=== PATIENT | female | born 1930 | race Caucasian/White ===

== ENCOUNTER 2017-10-02 14:18 | Inpatient (IN) | payer MEDICARE, OTHER ==
--- NOTE | 2017-10-02 15:27 | C.PDOC ---
History Of Present Illness 87 year old female, whose PMHx includes HTN, presents to the ED for evaluation after sustaining a fall two days ago. Patient states that she fell after getting out of bed and was unable to get up, so she laid on the floor overnight. She is complaining of bilateral hip and knee pain. Additional history is limited because patient is mildly confused at baseline and is a poor historian. Time Seen by Provider: 10/02/17 14:23 Chief Complaint (Nursing): Lower Extremity Problem/Injury History Per: Patient History/Exam Limitations: other (poor historian, confused at baseline ) Onset/Duration Of Symptoms: Days (2) Current Symptoms Are (Timing): Still Present Additional History Per: Patient - Hip Description Of Injury: Fell - Knee Description Of Injury: Fell Past Medical History Reviewed: Historical Data, Nursing Documentation, Vital Signs Vital Signs: Last Vital Signs Temp 97.4 F L 10/02/17 18:49 Pulse 72 10/02/17 18:49 Resp 18 10/02/17 18:49 BP 172/74 H 10/02/17 18:49 Pulse Ox 96 10/02/17 18:49 - Medical History PMH: Arthritis, 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), Gastritis, HTN, Hyperthyroidism, Hypothyroidism, Osteoporosis Surgical History: No Surg Hx Family History: States: Unknown Family Hx - Social History Hx Tobacco Use: No Hx Alcohol Use: No Hx Substance Use: No - Immunization History Hx Tetanus Toxoid Vaccination: No Hx Influenza Vaccination: No Hx Pneumococcal Vaccination: No Review Of Systems Musculoskeletal: Positive for: Other (bilateral hip and knee pain ) Physical Exam - Physical Exam Appears: Non-toxic, No Acute Distress Skin: Normal Color, Warm, Dry Head: Atraumatic, Normacephalic Eye(s): bilateral: Normal Inspection Oral Mucosa: Moist Neck: Supple Chest: Symmetrical, No Deformity, No Tenderness Cardiovascular: Rhythm Regular, No Murmur Respiratory: Normal Breath Sounds, No Rales, No Rhonchi, No Wheezing Extremity: Tenderness (to bilateral knees and hips ), Capillary Refill (less than 2 seconds ) Neurological/Psych: Other (awake, alert ) ED Course And Treatment - Laboratory Results Result Diagrams: 10/02/17 15:25 10/02/17 15:25 ECG: Interpreted By Me, Viewed By Me ECG Rhythm: Sinus Rhythm Interpretation Of ECG: Normal Sinus Rhythm at rate 70bpm. No ST/T wave changes. Rate From EC O2 Sat by Pulse Oximetry: 99 (on RA) Pulse Ox Interpretation: Normal Medical Decision Making Medical Decision Making: Progress: Bloodwork, urinalysis, CT Head, CXR, EKG, Knee XR, Hip XR ordered and reviewed. Tylenol PO administered. pt lives by herself. needs pt eval for gait dysfunction. xr neg for acute fracture. accepted by dr aceves. Disposition - Disposition Disposition: HOSPITALIZED Disposition Time: 19:28 Condition: STABLE - Clinical Impression Clinical Impression: Fall, Inability to ambulate due to hip - Scribe Statement The provider has reviewed the documentation as recorded by the Scribe (Arabella Do) Provider Attestation: All medical record entries made by the Scribe were at my direction and personally dictated by me. I have reviewed the chart and agree that the record accurately reflects my personal performance of the history, physical exam, medical decision making, and the department course for this patient. I have also personally directed, reviewed, and agree with the discharge instructions and disposition. Decision To Admit - Pt Status Changed To: Hospital Disposition Of: Inpatient - Admit Certification Admit to Inpatient:: After my assessment, the patient will require hospitalization for at least two midnights. This is because of the severity of symptoms shown, intensity of services needed, and/or the medical risk in this patient being treated as an outpatient. - InPatient: Physician Admission Certification: I certify that this patient requires 2 or more midnights of care for the following reason:: needs pt eval. - . Bed Request Type: Regular Admitting Physician: Padmini Aceves Patient Diagnosis: Fall, Inability to ambulate due to hip
[2017-10-02 15:31] LABS: BASO % 0.4 % (0.0-2.0); EOS # 0.1 K/uL (0.0-0.7); EOS % 1.1 % (0.0-4.0); HEMOGLOBIN 13.2 g/dL (11.0-16.0); LYMPH # 0.9 K/uL (1.0-4.3); LYMPH % 12.5 % (20.0-40.0); MEAN CORPUSCULAR HEMOGLOBIN 29.7 pg (27.0-31.0); MEAN PLATELET VOLUME 8.3 fL (7.2-11.7); MONO # 0.7 K/uL (0.0-0.8); MONO % 10.2 % (0.0-10.0); NEUT # 5.3 K/uL (1.8-7.0); NEUT % 75.8 % (50.0-75.0); NRBC % 0.1 % (0.0-2.0); RBC 4.46 Mil/uL (3.80-5.20)
[2017-10-02 15:33] LABS: MEAN CELL VOLUME 84.8 fL (81.0-99.0)
[2017-10-02 15:39] LABS: INR 1.4; PROTHROMBIN TIME 15.1 SECONDS (9.7-12.2)
[2017-10-02 15:47] LABS: ALB/GLOB RATIO 1.1 (1.0-2.1); ALBUMIN 3.9 g/dL (3.5-5.0); ALT/SGPT 30 U/L (9-52); AST/SGOT 32 U/L (14-36); BLOOD UREA NITROGEN 10 mg/dL (7-17); CALCIUM 9.3 mg/dl (8.6-10.4); GFR AFRICAN-AMERICAN > 60; GFR NON-AFRICAN AMERICAN > 60
[2017-10-02 16:11] LABS: SQUAMOUS EPITHIAL 3 /hpf (0-5); URINE BACTERIA RARE (<OCC); URINE BILIRUBIN NEGATIVE (NEGATIVE); URINE BLOOD 2+ (NEGATIVE); URINE CLARITY Clear (Clear); URINE COLOR Yellow (YELLOW); URINE GLUCOSE (UA) NORMAL (Normal); URINE LEUKOCYTE ESTERASE NEG Leu/uL (Negative); URINE PROTEIN NEGATIVE (NEGATIVE)
--- NOTE | 2017-10-02 16:34 | CT ---
PROCEDURE: CT HEAD WITHOUT CONTRAST. HISTORY: trauma COMPARISON: 07/21/2016 TECHNIQUE: Axial computed tomography images were obtained through the head/brain without intravenous contrast. Radiation dose: Total exam DLP = 833.06 mGy-cm. This CT exam was performed using one or more of the following dose reduction techniques: Automated exposure control, adjustment of the mA and/or kV according to patient size, and/or use of iterative reconstruction technique. FINDINGS: HEMORRHAGE: No intracranial hemorrhage. BRAIN: No mass effect or edema. No atrophy or chronic microvascular ischemic changes. VENTRICLES: Unremarkable. No hydrocephalus. CALVARIUM: Unremarkable. PARANASAL SINUSES: Chronic sphenoid sinusitis unchanged. MASTOID AIR CELLS: Unremarkable as visualized. No inflammatory changes. OTHER FINDINGS: None. IMPRESSION: No intracranial hemorrhage. Chronic sphenoid sinusitis. Otherwise unremarkable. .
--- NOTE | 2017-10-02 17:08 | RAD ---
PROCEDURE: Bilateral Knee Radiographs. HISTORY: fall COMPARISON: None. FINDINGS: BONES: Right Knee: Normal. No fracture. Left Knee: Normal. No fracture. JOINTS: Right Knee: Degenerative changes primarily affecting medial compartment. Left knee: Degenerative changes affecting both medial lateral compartments. SOFT TISSUES: Right Knee: Normal. Left Knee: Normal. JOINT EFFUSION: Right Knee: None. Left Knee: None. OTHER FINDINGS: None. IMPRESSION: No acute findings related to/accounting for the clinical presentation.
--- NOTE | 2017-10-02 17:10 | RAD ---
PROCEDURE: Pelvis bilateral hips HISTORY: fall COMPARISON: None TECHNIQUE: Standard protocol for this study/examination. FINDINGS: There are no osseous abnormalities to suggest fracture. The pelvic ring is intact. Severe degenerative changes/osteonecrosis right femur. The right femoral head is collapse. Subchondral sclerosis and cyst formation on both sides of the joint. IMPRESSION: No acute findings related to/accounting for the clinical presentation. Severe unilateral degenerative change including osteonecrosis right femoral head. This includes deformity, subchondral cyst formation and sclerosis. Secondary remodeling of the acetabulum noted.
--- NOTE | 2017-10-02 17:10 | RAD ---
HISTORY: fall COMPARISON: 02/23/2014 FINDINGS: LUNGS: No active pulmonary disease. PLEURA: No significant pleural effusion identified, no pneumothorax apparent. CARDIOVASCULAR: No radiographic findings to suggest acute or significant cardiovascular disease. OSSEOUS STRUCTURES: No significant abnormalities. VISUALIZED UPPER ABDOMEN: Normal. OTHER FINDINGS: None. IMPRESSION: No active disease. No significant interval change compared to the prior examination(s).
[2017-10-03] MEDS: Levothyroxine 75 MCG TAB PO SCH (06:03)
[2017-10-03] MEDS: Enoxaparin 40 mg Syringe SC SCH (09:35)
[2017-10-03] MEDS: Brimonidine 0.2% Opth Sol (5ml) OU SCH ×2 (10:00→18:23)
[2017-10-03] MEDS: Pantoprazole 40 mg EC Tab PO SCH (10:00)
[2017-10-03] MEDS ORDERED: FLUOROMETHOLONE 0.1% OU PRN (16:06)
[2017-10-03] MEDS ORDERED: OPTH OU PRN (16:06)
--- NOTE | 2017-10-03 19:20 | CARD ---
APPROVED REPORT EKG Measurement Heart [id number] <Conclusion> Normal sinus rhythm Low voltage QRS Septal infarct, age undetermined Abnormal ECG
--- NOTE | 2017-10-03 19:34 | CP.PCM.PN ---
Subjective - Date & Time of Evaluation Date of Evaluation: 10/03/17 Time of Evaluation: 19:33 - Subjective Subjective: Pt feels better no pain no sob no fever agrees to NH Placement Objective - Vital Signs/Intake and Output Vital Signs (last 24 hours): Temp Pulse Resp BP Pulse Ox 97.5 F L 67 20 132/67 97 10/03/17 15:00 10/03/17 15:00 10/03/17 15:00 10/03/17 15:00 10/03/17 15:00 - Medications Medications: Current Medications Acetaminophen (Tylenol 325mg Tab) 650 mg PO Q8 PRN PRN Reason: Pain, moderate (4-7) Last Admin: 10/03/17 09:30 Dose: 650 mg Amlodipine Besylate (Norvasc) 5 mg PO DAILY [facility] Last Admin: 10/03/17 11:51 Dose: 5 mg Brimonidine Tartrate (Alphagan 0.2% Opht) 0 ml OU Q8H [facility] Last Admin: 10/03/17 18:23 Dose: 1 drop Enoxaparin Sodium (Lovenox) 40 mg SC DAILY [facility] Last Admin: 10/03/17 09:35 Dose: 40 mg Fluorometholone Acetate (Flarex) 0 ml OU TID PRN PRN Reason: Allergy symptoms Home Med (Azelastine Hcl [Azelastine Hcl]) 1 drop OU DAILY [facility] Latanoprost (Xalatan Opht) 0 ml OU HS [facility] Levothyroxine Sodium (Synthroid) 75 mcg PO DAILY@0630 [facility] Last Admin: 10/03/17 06:03 Dose: 75 mcg Losartan Potassium (Cozaar) 100 mg PO DAILY [facility] Last Admin: 10/03/17 11:51 Dose: 100 mg Meclizine HCl (Antivert) 25 mg PO Q8 PRN PRN Reason: Dizziness Pantoprazole Sodium (Protonix Ec Tab) 40 mg PO DAILY [facility] Last Admin: 10/03/17 10:00 Dose: 40 mg Pneumococcal Polyvalent Vaccine (Pneumovax 23 Vaccine) 0.5 ml IM .ONCE ONE Stop: 10/06/17 10:01 Timolol Maleate (Timoptic 0.5% Ophth Soln) 0 drop OU BID [facility] Last Admin: 10/03/17 18:23 Dose: 1 drop - Labs Labs: 10/02/17 15:25 10/02/17 15:25 PT 15.1 SECONDS (9.7-12.2) H 10/02/17 15:25 INR 1.4 10/02/17 15:25 APTT 33 SECONDS (21-34) 10/02/17 15:25 - Constitutional Appears: Non-toxic - Eye Exam Eye Exam: Normal appearance - ENT Exam ENT Exam: Mucous Membranes Moist - Respiratory Exam Respiratory Exam: Clear to Ausculation Bilateral - Cardiovascular Exam Cardiovascular Exam: REGULAR RHYTHM, +S1, +S2. absent: JVD - Extremities Exam Extremities Exam: absent: Pedal Edema Assessment and Plan - Assessment and Plan (Free Text) Assessment: 87 yo admitted after multiple fall lives alone but has had over 3 falls in last few weeks this time could not get up\\ PT and NH placement eval bp is better cont meds
[2017-10-03] MEDS: Latanoprost 2.5 ml Opht Soln OU SCH (22:20)
[2017-10-04] MEDS: Brimonidine 0.2% Opth Sol (5ml) OU SCH ×3 (02:38→18:04)
[2017-10-04] MEDS: Levothyroxine 75 MCG TAB PO SCH (05:49)
[2017-10-04] MEDS: Pantoprazole 40 mg EC Tab PO SCH (09:35)
[2017-10-04] MEDS: Enoxaparin 40 mg Syringe SC SCH (09:36)
[2017-10-04] MEDS: Latanoprost 2.5 ml Opht Soln OU SCH (21:24)
[2017-10-05] MEDS: Brimonidine 0.2% Opth Sol (5ml) OU SCH ×3 (02:20→19:00)
[2017-10-05] MEDS: Levothyroxine 75 MCG TAB PO SCH (05:56)
[2017-10-05] MEDS: Enoxaparin 40 mg Syringe SC SCH (09:32)
[2017-10-05] MEDS: Pantoprazole 40 mg EC Tab PO SCH (09:33)
[2017-10-05] MEDS: Latanoprost 2.5 ml Opht Soln OU SCH (22:37)
[2017-10-06] MEDS: Brimonidine 0.2% Opth Sol (5ml) OU SCH ×3 (02:20→18:16)
[2017-10-06] MEDS: Levothyroxine 75 MCG TAB PO SCH (05:39)
[2017-10-06] MEDS: Pantoprazole 40 mg EC Tab PO SCH (09:41)
[2017-10-06] MEDS: Enoxaparin 40 mg Syringe SC SCH (09:41)
[2017-10-06] MEDS ORDERED: Pneumococcal 23-Valent Vaccine IM ONE (10:00)
--- NOTE | 2017-10-06 17:06 | CP.PCM.PN ---
Subjective - Date & Time of Evaluation Date of Evaluation: 10/06/17 Time of Evaluation: 07:00 - Subjective Subjective: PT has been doing well no issues Objective - Vital Signs/Intake and Output Vital Signs (last 24 hours): Temp Pulse Resp BP Pulse Ox 98.2 F 62 20 146/68 99 10/06/17 08:05 10/06/17 09:42 10/06/17 08:05 10/06/17 09:42 10/06/17 08:05 Intake and Output: 10/06/17 10/06/17 06:59 18:59 Intake Total 60 Output Total 300 Balance -240 - Medications Medications: Current Medications Acetaminophen (Tylenol 325mg Tab) 650 mg PO Q8 PRN PRN Reason: Pain, moderate (4-7) Last Admin: 10/06/17 04:00 Dose: 650 mg Amlodipine Besylate (Norvasc) 5 mg PO DAILY [facility] Last Admin: 10/06/17 09:41 Dose: 5 mg Brimonidine Tartrate (Alphagan 0.2% Opht) 0 ml OU Q8H [facility] Last Admin: 10/06/17 11:19 Dose: 1 drop Enoxaparin Sodium (Lovenox) 40 mg SC DAILY [facility] Last Admin: 10/06/17 09:41 Dose: 40 mg Fluorometholone Acetate (Flarex) 0 ml OU TID PRN PRN Reason: Allergy symptoms Home Med (Azelastine Hcl [Azelastine Hcl]) 1 drop OU DAILY [facility] Latanoprost (Xalatan Opht) 0 ml OU HS [facility] Last Admin: 10/05/17 22:37 Dose: 2.5 ml Levothyroxine Sodium (Synthroid) 75 mcg PO DAILY@0630 [facility] Last Admin: 10/06/17 05:39 Dose: 75 mcg Losartan Potassium (Cozaar) 50 mg PO DAILY [facility] Meclizine HCl (Antivert) 25 mg PO Q8 PRN PRN Reason: Dizziness Pantoprazole Sodium (Protonix Ec Tab) 40 mg PO DAILY [facility] Last Admin: 10/06/17 09:41 Dose: 40 mg Timolol Maleate (Timoptic 0.5% Ophth Soln) 0 drop OU BID [facility] Last Admin: 10/06/17 11:18 Dose: 1 drop - Labs Labs: 10/02/17 15:25 10/02/17 15:25 PT 15.1 SECONDS (9.7-12.2) H 10/02/17 15:25 INR 1.4 10/02/17 15:25 APTT 33 SECONDS (21-34) 10/02/17 15:25 - Constitutional Appears: Well - Eye Exam Eye Exam: Normal appearance - ENT Exam ENT Exam: Mucous Membranes Moist - Respiratory Exam Respiratory Exam: Clear to Ausculation Bilateral Assessment and Plan - Assessment and Plan (Free Text) Assessment: bp ; on the low side decreased losartan spoke to RN awaiting eval for Nh placement
[2017-10-06] MEDS: Latanoprost 2.5 ml Opht Soln OU SCH (21:43)
[2017-10-07] MEDS: Brimonidine 0.2% Opth Sol (5ml) OU SCH ×3 (01:18→17:41)
[2017-10-07] MEDS: Levothyroxine 75 MCG TAB PO SCH (06:09)
[2017-10-07] MEDS: Enoxaparin 40 mg Syringe SC SCH (09:55)
[2017-10-07] MEDS: Pantoprazole 40 mg EC Tab PO SCH (09:56)
--- NOTE | 2017-10-07 16:50 | CP.PCM.PN ---
Subjective - Date & Time of Evaluation Date of Evaluation: 10/07/17 Time of Evaluation: 16:50 - Subjective Subjective: Pt feels well [facility] alert and aware of every detail no pain Objective - Vital Signs/Intake and Output Vital Signs (last 24 hours): Temp Pulse Resp BP Pulse Ox 97.8 F 60 20 112/56 L 99 10/07/17 15:00 10/07/17 15:00 10/07/17 15:00 10/07/17 15:00 10/07/17 15:00 Intake and Output: 10/07/17 10/07/17 06:59 18:59 Intake Total 200 Balance 200 - Medications Medications: Current Medications Acetaminophen (Tylenol 325mg Tab) 650 mg PO Q8 PRN PRN Reason: Pain, moderate (4-7) Last Admin: 10/06/17 04:00 Dose: 650 mg Brimonidine Tartrate (Alphagan 0.2% Opht) 0 ml OU Q8H [facility] Last Admin: 10/07/17 09:55 Dose: 1 drop Enoxaparin Sodium (Lovenox) 40 mg SC DAILY [facility] Last Admin: 10/07/17 09:55 Dose: 40 mg Fluorometholone Acetate (Flarex) 0 ml OU TID PRN PRN Reason: Allergy symptoms Home Med (Azelastine Hcl [Azelastine Hcl]) 1 drop OU DAILY [facility] Latanoprost (Xalatan Opht) 0 ml OU HS [facility] Last Admin: 10/06/17 21:43 Dose: 2.5 ml Levothyroxine Sodium (Synthroid) 75 mcg PO DAILY@0630 [facility] Last Admin: 10/07/17 06:09 Dose: 75 mcg Losartan Potassium (Cozaar) 50 mg PO DAILY [facility] Last Admin: 10/07/17 09:55 Dose: 50 mg Meclizine HCl (Antivert) 25 mg PO Q8 PRN PRN Reason: Dizziness Pantoprazole Sodium (Protonix Ec Tab) 40 mg PO DAILY [facility] Last Admin: 10/07/17 09:56 Dose: 40 mg Timolol Maleate (Timoptic 0.5% Ophth Soln) 0 drop OU BID [facility] Last Admin: 10/07/17 09:56 Dose: 1 drop - Labs Labs: 10/02/17 15:25 10/02/17 15:25 PT 15.1 SECONDS (9.7-12.2) H 10/02/17 15:25 INR 1.4 10/02/17 15:25 APTT 33 SECONDS (21-34) 10/02/17 15:25 - Constitutional Appears: Well - Eye Exam Eye Exam: Normal appearance - ENT Exam ENT Exam: Mucous Membranes Moist - Respiratory Exam Respiratory Exam: Clear to Ausculation Bilateral - Cardiovascular Exam Cardiovascular Exam: REGULAR RHYTHM, RRR. absent: JVD - GI/Abdominal Exam GI & Abdominal Exam: Soft, Normal Bowel Sounds - Extremities Exam Extremities Exam: absent: Pedal Edema Assessment and Plan - Assessment and Plan (Free Text) Assessment: bp on low side dc norvasc and monitor awaiting for NH placement
[2017-10-07] MEDS: Latanoprost 2.5 ml Opht Soln OU SCH (21:35)
[2017-10-08] MEDS: Brimonidine 0.2% Opth Sol (5ml) OU SCH ×3 (04:13→17:32)
[2017-10-08] MEDS: Levothyroxine 75 MCG TAB PO SCH (05:53)
[2017-10-08] MEDS: Pantoprazole 40 mg EC Tab PO SCH (09:19)
[2017-10-08] MEDS: Enoxaparin 40 mg Syringe SC SCH (09:19)
--- NOTE | 2017-10-08 16:24 | CP.PCM.PN ---
Subjective - Date & Time of Evaluation Date of Evaluation: 10/08/17 Time of Evaluation: 06:00 - Subjective Subjective: Pt awating for NH placement. manager document control anticipates it will take bout a week. Pt cant go home due to inabililty to care for self and multiple falls. Objective - Vital Signs/Intake and Output Vital Signs (last 24 hours): Temp Pulse Resp BP Pulse Ox 97.5 F L 52 L 20 92/55 L 98 10/08/17 07:15 10/08/17 07:15 10/08/17 07:15 10/08/17 07:15 10/08/17 07:15 Intake and Output: 10/08/17 10/08/17 06:59 18:59 Intake Total 320 Output Total 1050 Balance -730 - Medications Medications: Current Medications Acetaminophen (Tylenol 325mg Tab) 650 mg PO Q8 PRN PRN Reason: Pain, moderate (4-7) Last Admin: 10/08/17 04:16 Dose: 650 mg Brimonidine Tartrate (Alphagan 0.2% Opht) 0 ml OU Q8H [facility] Last Admin: 10/08/17 09:19 Dose: 1 drop Enoxaparin Sodium (Lovenox) 40 mg SC DAILY [facility] Last Admin: 10/08/17 09:19 Dose: 40 mg Fluorometholone Acetate (Flarex) 0 ml OU TID PRN PRN Reason: Allergy symptoms Home Med (Azelastine Hcl [Azelastine Hcl]) 1 drop OU DAILY [facility] Latanoprost (Xalatan Opht) 0 ml OU HS [facility] Last Admin: 10/07/17 21:35 Dose: 1 ml Levothyroxine Sodium (Synthroid) 75 mcg PO DAILY@0630 [facility] Last Admin: 10/08/17 05:53 Dose: 75 mcg Meclizine HCl (Antivert) 25 mg PO Q8 PRN PRN Reason: Dizziness Pantoprazole Sodium (Protonix Ec Tab) 40 mg PO DAILY [facility] Last Admin: 10/08/17 09:19 Dose: 40 mg Timolol Maleate (Timoptic 0.5% Ophth Soln) 0 drop OU BID [facility] Last Admin: 10/08/17 09:20 Dose: 1 drop - Labs Labs: 10/02/17 15:25 10/02/17 15:25 PT 15.1 SECONDS (9.7-12.2) H 10/02/17 15:25 INR 1.4 10/02/17 15:25 APTT 33 SECONDS (21-34) 10/02/17 15:25 - Constitutional Appears: No Acute Distress - Eye Exam Eye Exam: Normal appearance - ENT Exam ENT Exam: Mucous Membranes Moist - Respiratory Exam Respiratory Exam: Clear to Ausculation Bilateral - GI/Abdominal Exam GI & Abdominal Exam: Soft. absent: Tenderness Assessment and Plan - Assessment and Plan (Free Text) Assessment: awaing for NH placement hypotension; dc bp meds ua spoke to RN; no issues reported
[2017-10-08] MEDS: Latanoprost 2.5 ml Opht Soln OU SCH (21:40)
[2017-10-08 22:57] LABS: SQUAMOUS EPITHIAL 5 /hpf (0-5); URINE BACTERIA MOD (<OCC); URINE BILIRUBIN NEGATIVE (NEGATIVE); URINE BLOOD 2+ (NEGATIVE); URINE CLARITY Hazy (Clear); URINE COLOR Yellow (YELLOW); URINE GLUCOSE (UA) NORMAL (Normal); URINE LEUKOCYTE ESTERASE 3+ Leu/uL (Negative); URINE PROTEIN NEGATIVE (NEGATIVE); URINE UROBILINOGEN NORMAL mg/dL (0.2-1.0)
[2017-10-09] MEDS: Brimonidine 0.2% Opth Sol (5ml) OU SCH ×3 (02:44→17:23)
[2017-10-09] MEDS: Levothyroxine 75 MCG TAB PO SCH (05:49)
[2017-10-09 06:39] LABS: BASO # 0.1 K/uL (0.0-0.2); BASO % 1.1 % (0.0-2.0); EOS # 0.3 K/uL (0.0-0.7); EOS % 5.5 % (0.0-4.0); HEMOGLOBIN 11.3 g/dL (11.0-16.0); LYMPH # 1.3 K/uL (1.0-4.3); LYMPH % 27.9 % (20.0-40.0); MEAN CELL VOLUME 84.7 fL (81.0-99.0); MEAN CORPUSCULAR HGB CONC 34.2 g/dL (33.0-37.0); MEAN PLATELET VOLUME 8.2 fL (7.2-11.7); MONO # 0.5 K/uL (0.0-0.8); MONO % 11.5 % (0.0-10.0); NEUT # 2.6 K/uL (1.8-7.0); RBC 3.91 Mil/uL (3.80-5.20); RED CELL DISTRIBUTION WIDTH 13.9 % (11.5-14.5); WHITE BLOOD COUNT 4.8 K/uL (4.8-10.8)
[2017-10-09 07:14] LABS: BLOOD UREA NITROGEN 23 mg/dL (7-17); CALCIUM 8.4 mg/dl (8.6-10.4); GFR AFRICAN-AMERICAN > 60; GFR NON-AFRICAN AMERICAN 59
[2017-10-09] MEDS: Enoxaparin 40 mg Syringe SC SCH (09:54)
[2017-10-09] MEDS: Pantoprazole 40 mg EC Tab PO SCH (09:54)
--- NOTE | 2017-10-09 16:50 | CP.PCM.PN ---
Subjective - Date & Time of Evaluation Date of Evaluation: 10/09/17 Time of Evaluation: 06:00 - Subjective Subjective: NO issues with patient today however nurse called due to constipation still wating for NH placement Objective - Vital Signs/Intake and Output Vital Signs (last 24 hours): Temp Pulse Resp BP Pulse Ox 97.4 F L 61 18 112/72 98 10/09/17 15:46 10/09/17 15:46 10/09/17 15:46 10/09/17 15:46 10/09/17 15:46 Intake and Output: 10/09/17 10/09/17 06:59 18:59 Intake Total 480 Output Total 1000 450 Balance -520 -450 - Medications Medications: Current Medications Acetaminophen (Tylenol 325mg Tab) 650 mg PO Q8 PRN PRN Reason: Pain, moderate (4-7) Last Admin: 10/09/17 02:45 Dose: 650 mg Brimonidine Tartrate (Alphagan 0.2% Opht) 0 ml OU Q8H [facility] Last Admin: 10/09/17 09:57 Dose: 1 drop Enoxaparin Sodium (Lovenox) 40 mg SC DAILY [facility] Last Admin: 10/09/17 09:54 Dose: 40 mg Fluorometholone Acetate (Flarex) 0 ml OU TID PRN PRN Reason: Allergy symptoms Home Med (Patient's Own Drops) 1 drop OU Q24H [facility] Ciprofloxacin (Cipro 400mg/200ml Dsw) 400 mg in 200 mls @ 133 mls/hr IVPB Q12H [facility] PRN Reason: Protocol Lactulose (Enulose) 20 gm PO ONCE PRN PRN Reason: Constipation Latanoprost (Xalatan Opht) 0 ml OU HS [facility] Last Admin: 10/08/17 21:40 Dose: 1 ml Levothyroxine Sodium (Synthroid) 75 mcg PO DAILY@0630 [facility] Last Admin: 10/09/17 05:49 Dose: 75 mcg Meclizine HCl (Antivert) 25 mg PO Q8 PRN PRN Reason: Dizziness Pantoprazole Sodium (Protonix Ec Tab) 40 mg PO DAILY [facility] Last Admin: 10/09/17 09:54 Dose: 40 mg Timolol Maleate (Timoptic 0.5% Ophth Soln) 0 drop OU BID [facility] Last Admin: 10/09/17 09:56 Dose: 1 drop - Labs Labs: 05/17/18 06:30 10/09/17 06:30 PT 15.1 SECONDS (9.7-12.2) H 10/02/17 15:25 INR 1.4 10/02/17 15:25 APTT 33 SECONDS (21-34) 10/02/17 15:25 - Constitutional Appears: Non-toxic - Eye Exam Eye Exam: Normal appearance - ENT Exam ENT Exam: Mucous Membranes Moist - Respiratory Exam Respiratory Exam: absent: Chest Wall Tenderness - Cardiovascular Exam Cardiovascular Exam: +S1, +S2. absent: JVD Assessment and Plan - Assessment and Plan (Free Text) Assessment: UTI; dc catheter cipro c and s bp ; on the low side so meds dc continue to monitor awaiting for NH
[2017-10-09] MEDS: AZELASTINE HCL 0.05% OU SCH (17:30)
[2017-10-09] MEDS: Ciprofloxacin 400mg/200ml D5W 400 MG/200 ML BAG IVPB SCH (21:34)
[2017-10-09] MEDS: Latanoprost 2.5 ml Opht Soln OU SCH (21:35)
[2017-10-10] MEDS: Brimonidine 0.2% Opth Sol (5ml) OU SCH ×3 (02:19→17:11)
[2017-10-10] MEDS: Levothyroxine 75 MCG TAB PO SCH (05:35)
[2017-10-10] MEDS: Ciprofloxacin 400mg/200ml D5W 400 MG/200 ML BAG IVPB SCH ×2 (05:35→17:10)
[2017-10-10] MEDS: Enoxaparin 40 mg Syringe SC SCH (10:30)
[2017-10-10] MEDS: Pantoprazole 40 mg EC Tab PO SCH (10:30)
--- NOTE | 2017-10-10 11:56 | CP.PCM.PN ---
Subjective - Date & Time of Evaluation Date of Evaluation: 10/10/17 Time of Evaluation: 11:56 - Subjective Subjective: PT co headache otherwise feeling well. pt denies dysuria but has erickson in Objective - Vital Signs/Intake and Output Vital Signs (last 24 hours): Temp Pulse Resp BP Pulse Ox 97.9 F 55 L 20 114/65 99 10/10/17 07:00 10/10/17 07:00 10/10/17 07:00 10/10/17 07:00 10/10/17 07:00 Intake and Output: 10/10/17 10/10/17 06:59 18:59 Intake Total 520 Output Total 650 Balance -130 - Medications Medications: Current Medications Acetaminophen (Tylenol 325mg Tab) 650 mg PO Q8 PRN PRN Reason: Pain, moderate (4-7) Last Admin: 10/10/17 02:20 Dose: 650 mg Brimonidine Tartrate (Alphagan 0.2% Opht) 0 ml OU Q8H [facility] Last Admin: 10/10/17 10:30 Dose: 1 drop Fluorometholone Acetate (Flarex) 0 ml OU TID PRN PRN Reason: Allergy symptoms Home Med (Patient's Own Drops) 1 drop OU Q24H [facility] Last Admin: 10/09/17 17:30 Dose: 1 drop Ciprofloxacin (Cipro 400mg/200ml Dsw) 400 mg in 200 mls @ 133 mls/hr IVPB Q12H [facility] PRN Reason: Protocol Last Admin: 10/10/17 05:35 Dose: 133 mls/hr Lactulose (Enulose) 20 gm PO ONCE PRN PRN Reason: Constipation Latanoprost (Xalatan Opht) 0 ml OU HS [facility] Last Admin: 10/09/17 21:35 Dose: 1 ml Levothyroxine Sodium (Synthroid) 75 mcg PO DAILY@0630 [facility] Last Admin: 10/10/17 05:35 Dose: 75 mcg Meclizine HCl (Antivert) 25 mg PO Q8 PRN PRN Reason: Dizziness Pantoprazole Sodium (Protonix Ec Tab) 40 mg PO DAILY [facility] Last Admin: 10/10/17 10:30 Dose: 40 mg Timolol Maleate (Timoptic 0.5% Ophth Soln) 0 drop OU BID [facility] Last Admin: 10/10/17 10:30 Dose: 1 drop - Labs Labs: 05/17/18 06:30 10/09/17 06:30 PT 15.1 SECONDS (9.7-12.2) H 10/02/17 15:25 INR 1.4 10/02/17 15:25 APTT 33 SECONDS (21-34) 10/02/17 15:25 - Constitutional Appears: No Acute Distress - Eye Exam Eye Exam: Normal appearance - ENT Exam ENT Exam: Mucous Membranes Moist - Respiratory Exam Respiratory Exam: Clear to Ausculation Bilateral, NORMAL BREATHING PATTERN - Cardiovascular Exam Cardiovascular Exam: RRR, +S1, +S2. absent: JVD - GI/Abdominal Exam GI & Abdominal Exam: Soft, Normal Bowel Sounds. absent: Tenderness, Mass - Extremities Exam Extremities Exam: absent: Pedal Edema Assessment and Plan - Assessment and Plan (Free Text) Assessment: UTI faustino erickson isntructed BOBBY pratt ivf one bad off bp meds due to low bp awaing NH placment
[2017-10-10] MEDS ORDERED: Sodium Chloride 0.45% 1,000 ML IV SCH (12:00)
[2017-10-10] MEDS: AZELASTINE HCL 0.05% OU SCH (17:10)
[2017-10-10] MEDS: Latanoprost 2.5 ml Opht Soln OU SCH (21:10)
[2017-10-11] MEDS: Brimonidine 0.2% Opth Sol (5ml) OU SCH ×3 (02:30→17:23)
[2017-10-11] MEDS: Levothyroxine 75 MCG TAB PO SCH (05:45)
[2017-10-11] MEDS: Ciprofloxacin 400mg/200ml D5W 400 MG/200 ML BAG IVPB SCH ×2 (05:45→17:25)
[2017-10-11] MEDS: Pantoprazole 40 mg EC Tab PO SCH (09:58)
[2017-10-11] MEDS: AZELASTINE HCL 0.05% OU SCH (15:52)
[2017-10-11] MEDS: Latanoprost 2.5 ml Opht Soln OU SCH (21:30)
[2017-10-12] MEDS: Brimonidine 0.2% Opth Sol (5ml) OU SCH ×3 (01:39→17:24)
[2017-10-12] MEDS: Ciprofloxacin 400mg/200ml D5W 400 MG/200 ML BAG IVPB SCH ×2 (05:15→17:21)
[2017-10-12] MEDS: Levothyroxine 75 MCG TAB PO SCH (06:40)
[2017-10-12] MEDS: Pantoprazole 40 mg EC Tab PO SCH (09:56)
[2017-10-12] MEDS: AZELASTINE HCL 0.05% OU SCH (17:26)
[2017-10-12] MEDS: Latanoprost 2.5 ml Opht Soln OU SCH (21:43)
[2017-10-13] MEDS: Brimonidine 0.2% Opth Sol (5ml) OU SCH ×3 (01:52→17:02)
[2017-10-13] MEDS: Ciprofloxacin 400mg/200ml D5W 400 MG/200 ML BAG IVPB SCH (05:03)
[2017-10-13] MEDS: Levothyroxine 75 MCG TAB PO SCH (05:57)
[2017-10-13] MEDS: Pantoprazole 40 mg EC Tab PO SCH (09:12)
[2017-10-13] MEDS: Imipenem/Cilastatin 250 MG in Sodium Chloride 100 ML IVPB SCH ×2 (17:00→22:53)
[2017-10-13] MEDS: AZELASTINE HCL 0.05% OU SCH (17:00)
--- NOTE | 2017-10-13 18:42 | CP.PCM.PN ---
Subjective - Date & Time of Evaluation Date of Evaluation: 10/12/17 Time of Evaluation: 08:00 - Subjective Subjective: Elevated Bp called by RN due to elevated bp pt with no change otherwise awating NH placement Objective - Vital Signs/Intake and Output Vital Signs (last 24 hours): Temp Pulse Resp BP Pulse Ox 98 F 57 L 20 145/59 L 100 10/13/17 16:55 10/13/17 16:55 10/13/17 16:55 10/13/17 16:55 10/13/17 16:55 - Medications Medications: Current Medications Acetaminophen (Tylenol 325mg Tab) 650 mg PO Q8 PRN PRN Reason: Pain, moderate (4-7) Last Admin: 10/13/17 09:20 Dose: 650 mg Brimonidine Tartrate (Alphagan 0.2% Opht) 0 ml OU Q8H [facility] Last Admin: 10/13/17 17:02 Dose: 1 drop Fluorometholone Acetate (Flarex) 0 ml OU TID PRN PRN Reason: Allergy symptoms Home Med (Patient's Own Drops) 1 drop OU Q24H [facility] Last Admin: 10/13/17 17:00 Dose: 1 drop Imipenem/Cilastatin Sodium 250 (mg/ Sodium Chloride) 100 mls @ 100 mls/hr IVPB Q6H [facility] PRN Reason: Protocol Last Admin: 10/13/17 17:00 Dose: 100 mls/hr Lactulose (Enulose) 20 gm PO ONCE PRN PRN Reason: Constipation Last Admin: 10/12/17 18:00 Dose: 20 gm Lactulose (Enulose) 30 gm PO BID PRN PRN Reason: Constipation Last Admin: 10/13/17 15:43 Dose: 30 gm Latanoprost (Xalatan Opht) 0 ml OU HS [facility] Last Admin: 10/12/17 21:43 Dose: 1 ml Levothyroxine Sodium (Synthroid) 75 mcg PO DAILY@0630 [facility] Last Admin: 10/13/17 05:57 Dose: 75 mcg Losartan Potassium (Cozaar) 100 mg PO DAILY [facility] Last Admin: 10/13/17 09:13 Dose: 100 mg Meclizine HCl (Antivert) 25 mg PO Q8 PRN PRN Reason: Dizziness Pantoprazole Sodium (Protonix Ec Tab) 40 mg PO DAILY [facility] Last Admin: 10/13/17 09:12 Dose: 40 mg Timolol Maleate (Timoptic 0.5% Ophth Soln) 0 drop OU BID [facility] Last Admin: 10/13/17 17:02 Dose: 1 drop - Labs Labs: 10/09/17 06:30 10/09/17 06:30 PT 15.1 SECONDS (9.7-12.2) H 10/02/17 15:25 INR 1.4 10/02/17 15:25 APTT 33 SECONDS (21-34) 10/02/17 15:25 - Constitutional Appears: Well, No Acute Distress - Eye Exam Eye Exam: Normal appearance - ENT Exam ENT Exam: Mucous Membranes Moist - Respiratory Exam Respiratory Exam: Clear to Ausculation Bilateral Assessment and Plan - Assessment and Plan (Free Text) Assessment: elevated bp resume meds uti cont meds awaiting paul and s dre damond
--- NOTE | 2017-10-13 18:45 | CP.PCM.PN ---
Subjective - Date & Time of Evaluation Date of Evaluation: 10/13/17 Time of Evaluation: 18:45 - Subjective Subjective: PT feels well no issues family at bed side Objective - Vital Signs/Intake and Output Vital Signs (last 24 hours): Temp Pulse Resp BP Pulse Ox 98 F 57 L 20 145/59 L 100 10/13/17 16:55 10/13/17 16:55 10/13/17 16:55 10/13/17 16:55 10/13/17 16:55 - Medications Medications: Current Medications Acetaminophen (Tylenol 325mg Tab) 650 mg PO Q8 PRN PRN Reason: Pain, moderate (4-7) Last Admin: 10/13/17 09:20 Dose: 650 mg Brimonidine Tartrate (Alphagan 0.2% Opht) 0 ml OU Q8H [facility] Last Admin: 10/13/17 17:02 Dose: 1 drop Fluorometholone Acetate (Flarex) 0 ml OU TID PRN PRN Reason: Allergy symptoms Home Med (Patient's Own Drops) 1 drop OU Q24H [facility] Last Admin: 10/13/17 17:00 Dose: 1 drop Imipenem/Cilastatin Sodium 250 (mg/ Sodium Chloride) 100 mls @ 100 mls/hr IVPB Q6H [facility] PRN Reason: Protocol Last Admin: 10/13/17 17:00 Dose: 100 mls/hr Lactulose (Enulose) 20 gm PO ONCE PRN PRN Reason: Constipation Last Admin: 10/12/17 18:00 Dose: 20 gm Lactulose (Enulose) 30 gm PO BID PRN PRN Reason: Constipation Last Admin: 10/13/17 15:43 Dose: 30 gm Latanoprost (Xalatan Opht) 0 ml OU HS [facility] Last Admin: 10/12/17 21:43 Dose: 1 ml Levothyroxine Sodium (Synthroid) 75 mcg PO DAILY@0630 [facility] Last Admin: 10/13/17 05:57 Dose: 75 mcg Losartan Potassium (Cozaar) 100 mg PO DAILY [facility] Last Admin: 10/13/17 09:13 Dose: 100 mg Meclizine HCl (Antivert) 25 mg PO Q8 PRN PRN Reason: Dizziness Pantoprazole Sodium (Protonix Ec Tab) 40 mg PO DAILY [facility] Last Admin: 10/13/17 09:12 Dose: 40 mg Timolol Maleate (Timoptic 0.5% Ophth Soln) 0 drop OU BID [facility] Last Admin: 10/13/17 17:02 Dose: 1 drop - Labs Labs: 10/09/17 06:30 10/09/17 06:30 PT 15.1 SECONDS (9.7-12.2) H 10/02/17 15:25 INR 1.4 10/02/17 15:25 APTT 33 SECONDS (21-34) 10/02/17 15:25 - Constitutional Appears: Well, Non-toxic - Eye Exam Eye Exam: Normal appearance - ENT Exam ENT Exam: Mucous Membranes Moist - Respiratory Exam Respiratory Exam: Clear to Ausculation Bilateral - Cardiovascular Exam Cardiovascular Exam: REGULAR RHYTHM. absent: JVD - Extremities Exam Extremities Exam: Full ROM. absent: Joint Swelling Assessment and Plan - Assessment and Plan (Free Text) Assessment: bp better on Losartan UTI; E coli being treated awaiing NH Pt asked to see her cardiologyst Dr. Canela no active cardiac issues awating NH placement
[2017-10-13] MEDS: Latanoprost 2.5 ml Opht Soln OU SCH (22:53)
[2017-10-14] MEDS: Brimonidine 0.2% Opth Sol (5ml) OU SCH ×3 (02:06→17:11)
[2017-10-14] MEDS: Imipenem/Cilastatin 250 MG in Sodium Chloride 100 ML IVPB SCH ×2 (05:03→11:03)
[2017-10-14] MEDS: Levothyroxine 75 MCG TAB PO SCH (06:40)
--- NOTE | 2017-10-14 09:53 | CP.PCM.CON ---
History of Present Illness - History of Present Illness History of Present Illness: patient seen/examined. full consult to follow. history of HTn admitted with fall. previous nuclear stress test normal perfusion. will continue current conservative therapy. no current angina or heart failure Past Patient History - Infectious Disease Hx of Infectious Diseases: None - Past Medical History & Family History Past Medical History?: Yes - Past Social History Smoking Status: Never Smoked - CARDIAC Hx Hypertension: Yes - HEENT Hx Glaucoma: Yes - ENDOCRINE/METABOLIC Hx Hypothyroidism: Yes - MUSCULOSKELETAL/RHEUMATOLOGICAL Hx Arthritis: Yes - GASTROINTESTINAL Hx Gastritis: Yes - GENITOURINARY/GYNECOLOGICAL Hx Incontinence: Yes - PSYCHIATRIC Hx Substance Use: No - SURGICAL HISTORY Hx Surgeries: No - ANESTHESIA Hx Anesthesia: No Hx Anesthesia Reactions: No Meds Allergies/Adverse Reactions: Allergies Allergy/AdvReac Type Severity Reaction Status Date / Time SEASONAL Allergy Uncoded 10/02/17 14:28 - Medications Medications: Current Medications Acetaminophen (Tylenol 325mg Tab) 650 mg PO Q8 PRN PRN Reason: Pain, moderate (4-7) Last Admin: 10/14/17 00:44 Dose: 650 mg Brimonidine Tartrate (Alphagan 0.2% Opht) 0 ml OU Q8H [facility] Last Admin: 10/14/17 02:06 Dose: 1 drop Fluorometholone Acetate (Flarex) 0 ml OU TID PRN PRN Reason: Allergy symptoms Home Med (Patient's Own Drops) 1 drop OU Q24H [facility] Last Admin: 10/13/17 17:00 Dose: 1 drop Imipenem/Cilastatin Sodium 250 (mg/ Sodium Chloride) 100 mls @ 100 mls/hr IVPB Q6H [facility] PRN Reason: Protocol Last Admin: 10/14/17 05:03 Dose: 100 mls/hr Lactulose (Enulose) 20 gm PO ONCE PRN PRN Reason: Constipation Last Admin: 10/12/17 18:00 Dose: 20 gm Lactulose (Enulose) 30 gm PO BID PRN PRN Reason: Constipation Last Admin: 10/13/17 15:43 Dose: 30 gm Latanoprost (Xalatan Opht) 0 ml OU HS [facility] Last Admin: 10/13/17 22:53 Dose: 2.5 ml Levothyroxine Sodium (Synthroid) 75 mcg PO DAILY@0630 [facility] Last Admin: 10/14/17 06:40 Dose: 75 mcg Losartan Potassium (Cozaar) 100 mg PO DAILY [facility] Last Admin: 10/13/17 09:13 Dose: 100 mg Meclizine HCl (Antivert) 25 mg PO Q8 PRN PRN Reason: Dizziness Pantoprazole Sodium (Protonix Ec Tab) 40 mg PO DAILY [facility] Last Admin: 10/13/17 09:12 Dose: 40 mg Timolol Maleate (Timoptic 0.5% Ophth Soln) 0 drop OU BID [facility] Last Admin: 10/13/17 17:02 Dose: 1 drop Results - Vital Signs Recent Vital Signs: Last Vital Signs Temp 97.3 F L 10/14/17 08:05 Pulse 82 10/14/17 08:05 Resp 20 10/14/17 08:05 BP 128/53 L 10/14/17 08:05 Pulse Ox 100 10/14/17 08:05 - Labs Result Diagrams: 10/09/17 06:30 10/09/17 06:30
--- NOTE | 2017-10-14 09:53 | CP.PCM.CON ---
Past Patient History - Infectious Disease Hx of Infectious Diseases: None - Past Medical History & Family History Past Medical History?: Yes - Past Social History Smoking Status: Never Smoked - CARDIAC Hx Hypertension: Yes - HEENT Hx Glaucoma: Yes - ENDOCRINE/METABOLIC Hx Hypothyroidism: Yes - MUSCULOSKELETAL/RHEUMATOLOGICAL Hx Arthritis: Yes - GASTROINTESTINAL Hx Gastritis: Yes - GENITOURINARY/GYNECOLOGICAL Hx Incontinence: Yes - PSYCHIATRIC Hx Substance Use: No - SURGICAL HISTORY Hx Surgeries: No - ANESTHESIA Hx Anesthesia: No Hx Anesthesia Reactions: No Meds Allergies/Adverse Reactions: Allergies Allergy/AdvReac Type Severity Reaction Status Date / Time SEASONAL Allergy Uncoded 10/02/17 14:28 - Medications Medications: Current Medications Acetaminophen (Tylenol 325mg Tab) 650 mg PO Q8 PRN PRN Reason: Pain, moderate (4-7) Last Admin: 10/14/17 00:44 Dose: 650 mg Brimonidine Tartrate (Alphagan 0.2% Opht) 0 ml OU Q8H [facility] Last Admin: 10/14/17 02:06 Dose: 1 drop Fluorometholone Acetate (Flarex) 0 ml OU TID PRN PRN Reason: Allergy symptoms Home Med (Patient's Own Drops) 1 drop OU Q24H [facility] Last Admin: 10/13/17 17:00 Dose: 1 drop Imipenem/Cilastatin Sodium 250 (mg/ Sodium Chloride) 100 mls @ 100 mls/hr IVPB Q6H [facility] PRN Reason: Protocol Last Admin: 10/14/17 05:03 Dose: 100 mls/hr Lactulose (Enulose) 20 gm PO ONCE PRN PRN Reason: Constipation Last Admin: 10/12/17 18:00 Dose: 20 gm Lactulose (Enulose) 30 gm PO BID PRN PRN Reason: Constipation Last Admin: 10/13/17 15:43 Dose: 30 gm Latanoprost (Xalatan Opht) 0 ml OU HS [facility] Last Admin: 10/13/17 22:53 Dose: 2.5 ml Levothyroxine Sodium (Synthroid) 75 mcg PO DAILY@0630 [facility] Last Admin: 10/14/17 06:40 Dose: 75 mcg Losartan Potassium (Cozaar) 100 mg PO DAILY [facility] Last Admin: 10/13/17 09:13 Dose: 100 mg Meclizine HCl (Antivert) 25 mg PO Q8 PRN PRN Reason: Dizziness Pantoprazole Sodium (Protonix Ec Tab) 40 mg PO DAILY [facility] Last Admin: 10/13/17 09:12 Dose: 40 mg Timolol Maleate (Timoptic 0.5% Oph Soln) 0 drop OU BID [facility] Last Admin: 10/13/17 17:02 Dose: 1 drop Results - Vital Signs Recent Vital Signs: Last Vital Signs Temp 97.3 F L 10/14/17 08:05 Pulse 82 10/14/17 08:05 Resp 20 10/14/17 08:05 BP 128/53 L 10/14/17 08:05 Pulse Ox 100 10/14/17 08:05 - Labs Result Diagrams: 10/09/17 06:30 10/09/17 06:30
[2017-10-14] MEDS: Pantoprazole 40 mg EC Tab PO SCH (09:55)
--- NOTE | 2017-10-14 13:38 | CP.PCM.CON ---
History of Present Illness - History of Present Illness History of Present Illness: INFECTIOUS DISEASE CONSULT; HPI; 87-year-old female with past medical history of hypertension, hypothyroidism, osteoporosis, gastritis, arthritis and back problems who was admitted to [facility] 10/02/17 with history of a fall unable to get up and so she laid on the floor overnight. Hospital course includes hip and pelvic x-rays consistent with osteonecrosis right femoral head. CT of the head showing no intracranial hemorrhage but chronic sphenoid sinusitis. Patient had a Vela catheter placed and urine cultures came back positive for ESBL Escherichia coli. Patient had a repeat culture done after removal of catheter which showed the same organism. Infectious disease consultation therefore requested by PMD for approriate antibiotic therapy. History obtained mainly from the chart as patient unable to give any details. Patient also incontinent of urine. PMH: Arthritis, 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), Gastritis, HTN, Hyperthyroidism, Hypothyroidism, Osteoporosis Surgical History: No Surg Hx Family History: States: Unknown Family Hx - Social History Hx Tobacco Use: No Hx Alcohol Use: No Hx Substance Use: No - Immunization History Hx Tetanus Toxoid Vaccination: No Hx Influenza Vaccination: No Hx Pneumococcal Vaccination: No Review Of Systems PER HPI. Musculoskeletal: Positive for: Other (bilateral hip and knee pain ) Past Patient History - Infectious Disease Hx of Infectious Diseases: None - Past Medical History & Family History Past Medical History?: Yes - Past Social History Smoking Status: Never Smoked - CARDIAC Hx Hypertension: Yes - HEENT Hx Glaucoma: Yes - ENDOCRINE/METABOLIC Hx Hypothyroidism: Yes - MUSCULOSKELETAL/RHEUMATOLOGICAL Hx Arthritis: Yes - GASTROINTESTINAL Hx Gastritis: Yes - GENITOURINARY/GYNECOLOGICAL Hx Incontinence: Yes - PSYCHIATRIC Hx Substance Use: No - SURGICAL HISTORY Hx Surgeries: No - ANESTHESIA Hx Anesthesia: No Hx Anesthesia Reactions: No Meds Allergies/Adverse Reactions: Allergies Allergy/AdvReac Type Severity Reaction Status Date / Time SEASONAL Allergy Uncoded 10/02/17 14:28 - Medications Medications: Current Medications Acetaminophen (Tylenol 325mg Tab) 650 mg PO Q8 PRN PRN Reason: Pain, moderate (4-7) Last Admin: 10/14/17 10:17 Dose: 650 mg Brimonidine Tartrate (Alphagan 0.2% Opht) 0 ml OU Q8H [facility] Last Admin: 10/14/17 02:06 Dose: 1 drop Fluorometholone Acetate (Flarex) 0 ml OU TID PRN PRN Reason: Allergy symptoms Home Med (Patient's Own Drops) 1 drop OU Q24H [facility] Last Admin: 10/13/17 17:00 Dose: 1 drop Meropenem 500 mg/ Sodium (Chloride) 100 mls @ 100 mls/hr IVPB Q8H [facility] PRN Reason: Protocol Lactulose (Enulose) 20 gm PO ONCE PRN PRN Reason: Constipation Last Admin: 10/12/17 18:00 Dose: 20 gm Lactulose (Enulose) 30 gm PO BID PRN PRN Reason: Constipation Last Admin: 10/13/17 15:43 Dose: 30 gm Latanoprost (Xalatan Opht) 0 ml OU HS [facility] Last Admin: 10/13/17 22:53 Dose: 2.5 ml Levothyroxine Sodium (Synthroid) 75 mcg PO DAILY@0630 [facility] Last Admin: 10/14/17 06:40 Dose: 75 mcg Losartan Potassium (Cozaar) 100 mg PO DAILY [facility] Last Admin: 10/14/17 09:55 Dose: 100 mg Meclizine HCl (Antivert) 25 mg PO Q8 PRN PRN Reason: Dizziness Pantoprazole Sodium (Protonix Ec Tab) 40 mg PO DAILY [facility] Last Admin: 10/14/17 09:55 Dose: 40 mg Timolol Maleate (Timoptic 0.5% Oph Soln) 0 drop OU BID [facility] Last Admin: 10/14/17 09:55 Dose: 1 drop Physical Exam - Constitutional Appears: No Acute Distress, Cachectic - Head Exam Head Exam: NORMAL INSPECTION - Eye Exam Eye Exam: EOMI, PERRL - ENT Exam ENT Exam: Normal Oropharynx - Neck Exam Neck exam: Positive for: Normal Inspection - Respiratory Exam Respiratory Exam: Clear to Auscultation Bilateral - Cardiovascular Exam Cardiovascular Exam: REGULAR RHYTHM, +S1, +S2 - GI/Abdominal Exam GI & Abdominal Exam: Normal Bowel Sounds, Soft. absent: Guarding, Tenderness - Extremities Exam Extremities exam: Positive for: pedal pulses present. Negative for: calf tenderness, full ROM - Neurological Exam Neurological exam: Alert Additional comments: CONFUSED AT TIMES. - Psychiatric Exam Psychiatric exam: Normal Mood - Skin Skin Exam: Normal Color, Warm Results - Vital Signs Recent Vital Signs: Last Vital Signs Temp 97.3 F L 10/14/17 08:05 Pulse 82 10/14/17 08:05 Resp 20 10/14/17 08:05 BP 130/60 10/14/17 09:55 Pulse Ox 100 10/14/17 08:05 - Labs Result Diagrams: 10/09/17 06:30 10/09/17 06:30 - Imaging and Cardiology Chest x-ray Status: Report reviewed by me (HILARY) Assessment & Plan (1) UTI (urinary tract infection) Assessment and Plan: pancultures. DC IV Primaxin Start IV Merrem 500 mg IV piggyback every 8 hourly. 10/14/17. Start IV gentamicin 80 mg IV piggyback daily every 24 hourly for 3 days. Renal ultrasound rule out hydronephrosis on nephrolithiasis. follow-up renal functions closely. Case discussed with the staff. CONTACT PRECAUTIONS HIS URINE CULTURES POSITIVE ESBL POSITIVE ESCHERICHIA COLI. Status: Acute (2) Fall Assessment and Plan: STATUS POST FALL. RADIOLOGY REVIEWED. NO ACUTE FRACTURES.. STILL WITH A LOT OF PAIN BILATERAL HIPS. ANALGESICS PER pmd. Status: Acute (3) Inability to ambulate due to hip Status: Acute (4) Sinusitis Assessment and Plan: PATIENT HAS CHRONIC SPHENOID SINUSITIS INCIDENTLY FOUND ON CT HEAD. PATIENT NOT SYMPTOMATIC. Status: Acute (5) Osteonecrosis Assessment and Plan: PATIENT HAS OSTEONECROSIS RIGHT FEMORAL HEAD. ? ORTHO EVALUATION. 25-HYDROXY VITAMIN D LEVEL. Status: Acute
--- NOTE | 2017-10-14 15:57 | US ---
PROCEDURE: Ultrasound of the Kidneys HISTORY: uti r/o cysts/stones COMPARISON: None available. TECHNIQUE: Sonogram of the kidneys. FINDINGS: RIGHT KIDNEY: Measures: 8.0 cm. Normal in size, contour and echogenicity. No stone, solid mass lesion or hydronephrosis visualized. LEFT KIDNEY: Measures: 8.2 cm. Normal in size, contour and echogenicity. No stone, solid mass lesion or hydronephrosis visualized. There is a 1.4 x 1.2 x 1.4 cm cyst in the upper pole and 1.6 x 1.2 x 1.3 cm cyst in the lower pole. OTHER FINDINGS: None. IMPRESSION: No hydronephrosis or nephrolithiasis. Two simple cysts in the left kidney.
--- NOTE | 2017-10-14 17:04 | CP.PCM.PN ---
Subjective - Date & Time of Evaluation Date of Evaluation: 10/14/17 Time of Evaluation: 16:01 - Subjective Subjective: Pt co headache last night CT of head negative on admission Nurse called me with ESBL in the urine Objective - Vital Signs/Intake and Output Vital Signs (last 24 hours): Temp Pulse Resp BP Pulse Ox 97.7 F 63 20 107/59 L 100 10/14/17 16:00 10/14/17 16:00 10/14/17 16:00 10/14/17 16:00 10/14/17 16:00 Intake and Output: 10/14/17 10/14/17 06:59 18:59 Intake Total 400 Balance 400 - Medications Medications: Current Medications Acetaminophen (Tylenol 325mg Tab) 650 mg PO Q8 PRN PRN Reason: Pain, moderate (4-7) Last Admin: 10/14/17 10:17 Dose: 650 mg Brimonidine Tartrate (Alphagan 0.2% Opht) 0 ml OU Q8H [facility] Last Admin: 10/14/17 11:00 Dose: Not Given Fluorometholone Acetate (Flarex) 0 ml OU TID PRN PRN Reason: Allergy symptoms Home Med (Patient's Own Drops) 1 drop OU Q24H [facility] Last Admin: 10/13/17 17:00 Dose: 1 drop Meropenem 500 mg/ Sodium (Chloride) 100 mls @ 100 mls/hr IVPB Q8H [facility] PRN Reason: Protocol Gentamicin Sulfate 80 mg/ (Sodium Chloride) 102 mls @ 100 mls/hr IVPB Q24H [facility] PRN Reason: Protocol Stop: 10/17/17 19:01 Lactulose (Enulose) 20 gm PO ONCE PRN PRN Reason: Constipation Last Admin: 10/12/17 18:00 Dose: 20 gm Lactulose (Enulose) 30 gm PO BID PRN PRN Reason: Constipation Last Admin: 10/13/17 15:43 Dose: 30 gm Latanoprost (Xalatan Opht) 0 ml OU HS [facility] Last Admin: 10/13/17 22:53 Dose: 2.5 ml Levothyroxine Sodium (Synthroid) 75 mcg PO DAILY@0630 [facility] Last Admin: 10/14/17 06:40 Dose: 75 mcg Losartan Potassium (Cozaar) 50 mg PO DAILY [facility] Meclizine HCl (Antivert) 25 mg PO Q8 PRN PRN Reason: Dizziness Pantoprazole Sodium (Protonix Ec Tab) 40 mg PO DAILY [facility] Last Admin: 10/14/17 09:55 Dose: 40 mg Timolol Maleate (Timoptic 0.5% Ophth Soln) 0 drop OU BID [facility] Last Admin: 10/14/17 09:55 Dose: 1 drop - Labs Labs: 10/09/17 06:30 10/09/17 06:30 PT 15.1 SECONDS (9.7-12.2) H 10/02/17 15:25 INR 1.4 10/02/17 15:25 APTT 33 SECONDS (21-34) 10/02/17 15:25 - Constitutional Appears: Non-toxic - Eye Exam Eye Exam: Normal appearance - ENT Exam ENT Exam: Mucous Membranes Moist - Respiratory Exam Respiratory Exam: Clear to Ausculation Bilateral, NORMAL BREATHING PATTERN - Cardiovascular Exam Cardiovascular Exam: RRR, +S1, +S2. absent: JVD - GI/Abdominal Exam GI & Abdominal Exam: Normal Bowel Sounds - Skin Skin Exam: Dry, Intact Assessment and Plan - Assessment and Plan (Free Text) Assessment: ESBL urine on Primaxin callled ID bp on the low side cut bp meds awaiting NH placement
[2017-10-14] MEDS: AZELASTINE HCL 0.05% OU SCH (17:10)
[2017-10-14] MEDS: Meropenem 500 MG in Sodium Chloride 0.9% 100 ML IVPB SCH (17:10)
[2017-10-14] MEDS: Latanoprost 2.5 ml Opht Soln OU SCH (21:40)
[2017-10-15] MEDS: Meropenem 500 MG in Sodium Chloride 0.9% 100 ML IVPB SCH ×3 (00:30→16:15)
[2017-10-15] MEDS: Brimonidine 0.2% Opth Sol (5ml) OU SCH ×3 (02:26→17:16)
[2017-10-15] MEDS: Levothyroxine 75 MCG TAB PO SCH (06:27)
[2017-10-15 07:42] LABS: BLOOD UREA NITROGEN 14 mg/dL (7-17); CALCIUM 8.7 mg/dl (8.6-10.4); GFR AFRICAN-AMERICAN > 60; GFR NON-AFRICAN AMERICAN 59
[2017-10-15] MEDS: Pantoprazole 40 mg EC Tab PO SCH (09:42)
[2017-10-15] MEDS ORDERED: Ergocalciferol 50,000 Intl Units Cap PO SCH (12:00)
[2017-10-15] MEDS: AZELASTINE HCL 0.05% OU SCH (16:15)
--- NOTE | 2017-10-15 17:30 | CP.PCM.PN ---
Subjective - Date & Time of Evaluation Date of Evaluation: 10/15/17 Time of Evaluation: 17:30 - Subjective Subjective: CHIEF COMPLAINTS TODAY : AFEBRILE c/o bilateral hip and bilateral knee pain. On IV antibiotics. ROS. HEENT : N. Resp : No SOB wheezing, cough Cardio : No CP, PND orthopnea GI : No abd. Pain, n/v [employer] : No headache , focal deficit. Musculoskel : N Ext. : Pedal pulses intact, no edema or calf pain Derm : N Psych : N. PE. Pt. is alert awake in no distress. V.S As noted in the chart Head ,ear nose,throat and eyes : Normal. Neck : Supple with normal carotids. Lungs: Clear air entry. Heart : S1 & S2 normal . . No murmur. S4 + Abd : Soft non tender with normal bowel sounds. Neuro : Moves all ext. with no localized deficit. Ext : No edema with intact pulses. Neg. calf tenderness Derm : No rashes or decubitus ulcer. Radiology/Labs . blood cultures negative Urine culture +ve ESBL E.COLI S MERREM/GENTAMICIN Asssessment : . S/P FALL. UROSEPSIS. OSTEONECROSIS RIGHT FEMORAL HEAD. VITAMIN d DEFICIENCY. Plan : CASE DISCUSSED WITH PMD. PATIENT WILL NEED iv ANTIBIOTICS FOR TOTAL OF 10 DAYS. VITAMIN D 1 CAPSULE 50,000 UNITS Q 7DAYS X 3 MONTHS PATIENT WILL NEED A picc LINE OR MIDLINE. Objective - Vital Signs/Intake and Output Vital Signs (last 24 hours): Temp Pulse Resp BP Pulse Ox 97.1 F L 61 20 125/73 100 10/15/17 17:19 10/15/17 17:19 10/15/17 17:19 10/15/17 17:19 10/15/17 17:19 - Medications Medications: Current Medications Acetaminophen (Tylenol 325mg Tab) 650 mg PO Q8 PRN PRN Reason: Pain, moderate (4-7) Last Admin: 10/15/17 17:17 Dose: 650 mg Brimonidine Tartrate (Alphagan 0.2% Opht) 0 ml OU Q8H [facility] Last Admin: 10/15/17 17:16 Dose: 1 drop Ergocalciferol (Drisdol 50,000 Intl Units Cap) 1 cap PO Q7D [facility] Last Admin: 10/15/17 14:22 Dose: 1 cap Fluorometholone Acetate (Flarex) 0 ml OU TID PRN PRN Reason: Allergy symptoms Home Med (Patient's Own Drops) 1 drop OU Q24H [facility] Last Admin: 10/15/17 16:15 Dose: 1 drop Meropenem 500 mg/ Sodium (Chloride) 100 mls @ 100 mls/hr IVPB Q8H [facility] PRN Reason: Protocol Last Admin: 10/15/17 16:15 Dose: 100 mls/hr Gentamicin Sulfate 80 mg/ (Sodium Chloride) 102 mls @ 100 mls/hr IVPB Q24H [facility] PRN Reason: Protocol Stop: 10/17/17 19:01 Last Admin: 10/14/17 19:28 Dose: 100 mls/hr Lactulose (Enulose) 20 gm PO ONCE PRN PRN Reason: Constipation Last Admin: 10/12/17 18:00 Dose: 20 gm Lactulose (Enulose) 30 gm PO BID PRN PRN Reason: Constipation Last Admin: 10/13/17 15:43 Dose: 30 gm Latanoprost (Xalatan Opht) 0 ml OU HS [facility] Last Admin: 10/14/17 21:40 Dose: 1 ml Levothyroxine Sodium (Synthroid) 75 mcg PO DAILY@0630 [facility] Last Admin: 10/15/17 06:27 Dose: 75 mcg Losartan Potassium (Cozaar) 50 mg PO DAILY [facility] Last Admin: 10/15/17 09:42 Dose: 50 mg Meclizine HCl (Antivert) 25 mg PO Q8 PRN PRN Reason: Dizziness Pantoprazole Sodium (Protonix Ec Tab) 40 mg PO DAILY [facility] Last Admin: 10/15/17 09:42 Dose: 40 mg Timolol Maleate (Timoptic 0.5% Ophth Soln) 0 drop OU BID [facility] Last Admin: 10/15/17 17:16 Dose: 1 drop - Labs Labs: 10/09/17 06:30 10/15/17 07:14 PT 15.1 SECONDS (9.7-12.2) H 10/02/17 15:25 INR 1.4 10/02/17 15:25 APTT 33 SECONDS (21-34) 10/02/17 15:25 Assessment and Plan (1) UTI (urinary tract infection) Status: Acute (2) Fall Status: Acute (3) Inability to ambulate due to hip Status: Acute (4) Sinusitis Status: Acute (5) Osteonecrosis Status: Acute
--- NOTE | 2017-10-15 17:31 | CP.PCM.PN ---
Subjective - Date & Time of Evaluation Date of Evaluation: 10/15/17 Time of Evaluation: 17:00 - Subjective Subjective: Uneventfull day pt started on new abx by ID for ESBL Objective - Vital Signs/Intake and Output Vital Signs (last 24 hours): Temp Pulse Resp BP Pulse Ox 97.1 F L 61 20 125/73 100 10/15/17 17:19 10/15/17 17:19 10/15/17 17:19 10/15/17 17:19 10/15/17 17:19 - Medications Medications: Current Medications Acetaminophen (Tylenol 325mg Tab) 650 mg PO Q8 PRN PRN Reason: Pain, moderate (4-7) Last Admin: 10/15/17 17:17 Dose: 650 mg Brimonidine Tartrate (Alphagan 0.2% Opht) 0 ml OU Q8H [facility] Last Admin: 10/15/17 17:16 Dose: 1 drop Ergocalciferol (Drisdol 50,000 Intl Units Cap) 1 cap PO Q7D [facility] Last Admin: 10/15/17 14:22 Dose: 1 cap Fluorometholone Acetate (Flarex) 0 ml OU TID PRN PRN Reason: Allergy symptoms Home Med (Patient's Own Drops) 1 drop OU Q24H [facility] Last Admin: 10/15/17 16:15 Dose: 1 drop Meropenem 500 mg/ Sodium (Chloride) 100 mls @ 100 mls/hr IVPB Q8H [facility] PRN Reason: Protocol Last Admin: 10/15/17 16:15 Dose: 100 mls/hr Gentamicin Sulfate 80 mg/ (Sodium Chloride) 102 mls @ 100 mls/hr IVPB Q24H [facility] PRN Reason: Protocol Stop: 10/17/17 19:01 Last Admin: 10/14/17 19:28 Dose: 100 mls/hr Lactulose (Enulose) 20 gm PO ONCE PRN PRN Reason: Constipation Last Admin: 10/12/17 18:00 Dose: 20 gm Lactulose (Enulose) 30 gm PO BID PRN PRN Reason: Constipation Last Admin: 10/13/17 15:43 Dose: 30 gm Latanoprost (Xalatan Opht) 0 ml OU HS [facility] Last Admin: 10/14/17 21:40 Dose: 1 ml Levothyroxine Sodium (Synthroid) 75 mcg PO DAILY@0630 [facility] Last Admin: 10/15/17 06:27 Dose: 75 mcg Losartan Potassium (Cozaar) 50 mg PO DAILY [facility] Last Admin: 10/15/17 09:42 Dose: 50 mg Meclizine HCl (Antivert) 25 mg PO Q8 PRN PRN Reason: Dizziness Pantoprazole Sodium (Protonix Ec Tab) 40 mg PO DAILY [facility] Last Admin: 10/15/17 09:42 Dose: 40 mg Timolol Maleate (Timoptic 0.5% Ophth Soln) 0 drop OU BID [facility] Last Admin: 10/15/17 17:16 Dose: 1 drop - Labs Labs: 10/09/17 06:30 10/15/17 07:14 PT 15.1 SECONDS (9.7-12.2) H 10/02/17 15:25 INR 1.4 10/02/17 15:25 APTT 33 SECONDS (21-34) 10/02/17 15:25 - Constitutional Appears: Non-toxic - Eye Exam Eye Exam: Normal appearance - ENT Exam ENT Exam: Mucous Membranes Moist - Respiratory Exam Respiratory Exam: Clear to Ausculation Bilateral - GI/Abdominal Exam GI & Abdominal Exam: Soft, Normal Bowel Sounds Assessment and Plan - Assessment and Plan (Free Text) Assessment: ESBL in urine discussed case with ID today she recommended current abx for 10 days if she can go to [place], we can put a picc line will ask case sealer if she has been accepted fist and if the will take her with a picc line bofore inserting the line bp is good now.
[2017-10-15] MEDS: Latanoprost 2.5 ml Opht Soln OU SCH (22:05)
[2017-10-16] MEDS: Meropenem 500 MG in Sodium Chloride 0.9% 100 ML IVPB SCH ×4 (00:01→23:58)
[2017-10-16] MEDS: Brimonidine 0.2% Opth Sol (5ml) OU SCH ×3 (02:12→17:32)
[2017-10-16] MEDS: Levothyroxine 75 MCG TAB PO SCH (06:36)
[2017-10-16 08:16] LABS: SQUAMOUS EPITHIAL < 1 /hpf (0-5); URINE BACTERIA RARE (<OCC); URINE BILIRUBIN NEGATIVE (NEGATIVE); URINE BLOOD 1+ (NEGATIVE); URINE CLARITY Hazy (Clear); URINE COLOR Straw (YELLOW); URINE GLUCOSE (UA) NORMAL (Normal); URINE LEUKOCYTE ESTERASE 3+ Leu/uL (Negative); URINE PROTEIN NEGATIVE (NEGATIVE); URINE UROBILINOGEN NORMAL mg/dL (0.2-1.0)
[2017-10-16] MEDS: Pantoprazole 40 mg EC Tab PO SCH (09:14)
--- NOTE | 2017-10-16 16:26 | CP.PCM.PN ---
Subjective - Date & Time of Evaluation Date of Evaluation: 10/16/17 Time of Evaluation: 07:00 - Subjective Subjective: PT unchanged awaitint completion of IV abx for transfer to [place] +ESBL Objective - Vital Signs/Intake and Output Vital Signs (last 24 hours): Temp Pulse Resp BP Pulse Ox 97.9 F 62 18 124/65 100 10/16/17 16:05 10/16/17 16:05 10/16/17 16:05 10/16/17 16:05 10/16/17 16:05 Intake and Output: 10/16/17 10/16/17 06:59 18:59 Intake Total 400 Balance 400 - Medications Medications: Current Medications Acetaminophen (Tylenol 325mg Tab) 650 mg PO Q8 PRN PRN Reason: Pain, moderate (4-7) Last Admin: 10/16/17 11:16 Dose: 650 mg Brimonidine Tartrate (Alphagan 0.2% Opht) 0 ml OU Q8H [facility] Last Admin: 10/16/17 09:14 Dose: 1 drop Ergocalciferol (Drisdol 50,000 Intl Units Cap) 1 cap PO Q7D [facility] Last Admin: 10/15/17 14:22 Dose: 1 cap Fluorometholone Acetate (Flarex) 0 ml OU TID PRN PRN Reason: Allergy symptoms Home Med (Patient's Own Drops) 1 drop OU Q24H [facility] Last Admin: 10/15/17 16:15 Dose: 1 drop Meropenem 500 mg/ Sodium (Chloride) 100 mls @ 100 mls/hr IVPB Q8H [facility] PRN Reason: Protocol Last Admin: 10/16/17 09:14 Dose: 100 mls/hr Gentamicin Sulfate 80 mg/ (Sodium Chloride) 102 mls @ 100 mls/hr IVPB Q24H [facility] PRN Reason: Protocol Stop: 10/17/17 19:01 Last Admin: 10/15/17 19:00 Dose: 100 mls/hr Lactulose (Enulose) 20 gm PO ONCE PRN PRN Reason: Constipation Last Admin: 10/12/17 18:00 Dose: 20 gm Lactulose (Enulose) 30 gm PO BID PRN PRN Reason: Constipation Last Admin: 10/13/17 15:43 Dose: 30 gm Latanoprost (Xalatan Opht) 0 ml OU HS [facility] Last Admin: 10/15/17 22:05 Dose: 2.5 ml Levothyroxine Sodium (Synthroid) 75 mcg PO DAILY@0630 [facility] Last Admin: 10/16/17 06:36 Dose: 75 mcg Meclizine HCl (Antivert) 25 mg PO Q8 PRN PRN Reason: Dizziness Pantoprazole Sodium (Protonix Ec Tab) 40 mg PO DAILY [facility] Last Admin: 10/16/17 09:14 Dose: 40 mg Timolol Maleate (Timoptic 0.5% Oph Soln) 0 drop OU BID [facility] Last Admin: 10/16/17 09:14 Dose: 1 drop - Labs Labs: 10/09/17 06:30 10/15/17 07:14 PT 15.1 SECONDS (9.7-12.2) H 10/02/17 15:25 INR 1.4 10/02/17 15:25 APTT 33 SECONDS (21-34) 10/02/17 15:25 - Constitutional Appears: Non-toxic - Eye Exam Eye Exam: Normal appearance - ENT Exam ENT Exam: Mucous Membranes Moist - Cardiovascular Exam Cardiovascular Exam: REGULAR RHYTHM, RRR, +S1, +S2. absent: JVD - GI/Abdominal Exam GI & Abdominal Exam: Normal Bowel Sounds - Extremities Exam Extremities Exam: absent: Calf Tenderness Assessment and Plan - Assessment and Plan (Free Text) Assessment: ESBL on iv abs needs 9 more days per ID low bp fluctuates a lot cut down on meds awating NH placement
[2017-10-16] MEDS: AZELASTINE HCL 0.05% OU SCH (16:56)
[2017-10-16] MEDS: Latanoprost 2.5 ml Opht Soln OU SCH (21:47)
--- NOTE | 2017-10-16 23:30 | CP.PCM.PN ---
Subjective - Date & Time of Evaluation Date of Evaluation: 10/16/17 Time of Evaluation: 23:30 - Subjective Subjective: CHIEF COMPLAINTS TODAY : AFEBRILE c/o bilateral hip and bilateral knee pain. On IV antibiotics. PT TO GET PICC LINE AM ROS. HEENT : N. Resp : No SOB wheezing, cough Cardio : No CP, PND orthopnea GI : No abd. Pain, n/v STOCK ROOM MANAGER : No headache , focal deficit. Musculoskel : N Ext. : Pedal pulses intact, no edema or calf pain Derm : N Psych : N. PE. Pt. is alert awake in no distress. V.S As noted in the chart Head ,ear nose,throat and eyes : Normal. Neck : Supple with normal carotids. Lungs: Clear air entry. Heart : S1 & S2 normal . . No murmur. S4 + Abd : Soft non tender with normal bowel sounds. Neuro : Moves all ext. with no localized deficit. Ext : No edema with intact pulses. Neg. calf tenderness Derm : No rashes or decubitus ulcer. Radiology/Labs . blood cultures negative Urine culture +ve ESBL E.COLI S MERREM/GENTAMICIN Asssessment : . S/P FALL. UROSEPSIS. OSTEONECROSIS RIGHT FEMORAL HEAD. VITAMIN d DEFICIENCY. Plan : CASE DISCUSSED WITH PMD. PATIENT WILL NEED iv ANTIBIOTICS FOR TOTAL OF 10 DAYS. VITAMIN D 1 CAPSULE 50,000 UNITS Q 7DAYS X 3 MONTHS PATIENT WILL NEED A picc LINE OR MIDLINE. CASE DISCUSSED W DEALMAKER MS ACEVEDO. Objective - Vital Signs/Intake and Output Vital Signs (last 24 hours): Temp Pulse Resp BP Pulse Ox 97.9 F 62 18 124/65 100 10/16/17 16:05 10/16/17 16:05 10/16/17 16:05 10/16/17 16:05 10/16/17 16:05 Intake and Output: 10/16/17 10/17/17 18:59 06:59 Intake Total 100 Balance 100 - Medications Medications: Current Medications Acetaminophen (Tylenol 325mg Tab) 650 mg PO Q8 PRN PRN Reason: Pain, moderate (4-7) Last Admin: 10/16/17 11:16 Dose: 650 mg Brimonidine Tartrate (Alphagan 0.2% Opht) 0 ml OU Q8H [facility] Last Admin: 10/16/17 17:32 Dose: 1 drop Ergocalciferol (Drisdol 50,000 Intl Units Cap) 1 cap PO Q7D [facility] Last Admin: 10/15/17 14:22 Dose: 1 cap Fluorometholone Acetate (Flarex) 0 ml OU TID PRN PRN Reason: Allergy symptoms Home Med (Patient's Own Drops) 1 drop OU Q24H [facility] Last Admin: 10/16/17 16:56 Dose: 1 drop Meropenem 500 mg/ Sodium (Chloride) 100 mls @ 100 mls/hr IVPB Q8H [facility] PRN Reason: Protocol Last Admin: 10/16/17 16:53 Dose: 100 mls/hr Gentamicin Sulfate 80 mg/ (Sodium Chloride) 102 mls @ 100 mls/hr IVPB Q24H [facility] PRN Reason: Protocol Stop: 10/17/17 19:01 Last Admin: 10/16/17 18:37 Dose: 100 mls/hr Lactulose (Enulose) 20 gm PO ONCE PRN PRN Reason: Constipation Last Admin: 10/12/17 18:00 Dose: 20 gm Lactulose (Enulose) 30 gm PO BID PRN PRN Reason: Constipation Last Admin: 10/13/17 15:43 Dose: 30 gm Latanoprost (Xalatan Opht) 0 ml OU HS [facility] Last Admin: 10/16/17 21:47 Dose: 2.5 ml Levothyroxine Sodium (Synthroid) 75 mcg PO DAILY@0630 [facility] Last Admin: 10/16/17 06:36 Dose: 75 mcg Losartan Potassium (Cozaar) 25 mg PO DAILY [facility] Meclizine HCl (Antivert) 25 mg PO Q8 PRN PRN Reason: Dizziness Pantoprazole Sodium (Protonix Ec Tab) 40 mg PO DAILY [facility] Last Admin: 10/16/17 09:14 Dose: 40 mg Timolol Maleate (Timoptic 0.5% Ophth Soln) 0 drop OU BID [facility] Last Admin: 10/16/17 17:31 Dose: 1 drop - Labs Labs: 10/09/17 06:30 10/15/17 07:14 PT 15.1 SECONDS (9.7-12.2) H 10/02/17 15:25 INR 1.4 10/02/17 15:25 APTT 33 SECONDS (21-34) 10/02/17 15:25 Assessment and Plan (1) UTI (urinary tract infection) Status: Acute (2) Fall Status: Acute (3) Inability to ambulate due to hip Status: Acute (4) Sinusitis Status: Acute (5) Osteonecrosis Status: Acute
[2017-10-17 00:42] VITALS: RESP 20
[2017-10-17] MEDS: Brimonidine 0.2% Opth Sol (5ml) OU SCH ×3 (01:17→17:42)
[2017-10-17] MEDS: Levothyroxine 75 MCG TAB PO SCH (06:17)
[2017-10-17 08:13] LABS: BASO % 0.7 % (0.0-2.0); EOS # 0.2 K/uL (0.0-0.7); EOS % 3.8 % (0.0-4.0); HEMOGLOBIN 11.5 g/dL (11.0-16.0); LYMPH # 1.3 K/uL (1.0-4.3); MEAN CELL VOLUME 84.9 fL (81.0-99.0); MEAN CORPUSCULAR HEMOGLOBIN 29.2 pg (27.0-31.0); MEAN CORPUSCULAR HGB CONC 34.4 g/dL (33.0-37.0); MEAN PLATELET VOLUME 8.5 fL (7.2-11.7); MONO # 0.4 K/uL (0.0-0.8); MONO % 8.4 % (0.0-10.0); NEUT # 2.9 K/uL (1.8-7.0); NEUT % 60.1 % (50.0-75.0); NRBC % 0.1 % (0.0-2.0); RBC 3.93 Mil/uL (3.80-5.20); RED CELL DISTRIBUTION WIDTH 14.3 % (11.5-14.5); WHITE BLOOD COUNT 4.7 K/uL (4.8-10.8)
[2017-10-17 08:41] LABS: ALT/SGPT 40 U/L (9-52); AST/SGOT 36 U/L (14-36); BLOOD UREA NITROGEN 16 mg/dL (7-17); CALCIUM 8.6 mg/dl (8.6-10.4); GFR AFRICAN-AMERICAN > 60; GFR NON-AFRICAN AMERICAN 59
[2017-10-17] MEDS: Meropenem 500 MG in Sodium Chloride 0.9% 100 ML IVPB SCH ×2 (09:26→15:29)
[2017-10-17] MEDS: Pantoprazole 40 mg EC Tab PO SCH (09:26)
--- NOTE | 2017-10-17 12:42 | RAD ---
HISTORY: verify right PICC COMPARISON: 10/02/2017 FINDINGS: LUNGS: No active pulmonary disease. PLEURA: No significant pleural effusion identified, no pneumothorax apparent. CARDIOVASCULAR: New right PICC catheter terminates in the region of the right atrium. OSSEOUS STRUCTURES: No significant abnormalities. VISUALIZED UPPER ABDOMEN: Normal. OTHER FINDINGS: None. IMPRESSION: New right PICC catheter terminating in the region of the right atrium. Otherwise unremarkable.
--- NOTE | 2017-10-17 13:48 | CP.PCM.PN ---
Subjective - Date & Time of Evaluation Date of Evaluation: 10/17/17 Time of Evaluation: 13:48 - Subjective Subjective: CHIEF COMPLAINTS TODAY : AFEBRILE c/o bilateral hip and bilateral knee pain. On IV antibiotics. S/P PICC LINE TODAY ROS. HEENT : N. Resp : No SOB wheezing, cough Cardio : No CP, PND orthopnea GI : No abd. Pain, n/v HEAVY LINE TECHNICIAN : No headache , focal deficit. Musculoskel : N Ext. : Pedal pulses intact, no edema or calf pain Derm : N Psych : N. PE. Pt. is alert awake in no distress. V.S As noted in the chart Head ,ear nose,throat and eyes : Normal. Neck : Supple with normal carotids. Lungs: Clear air entry. Heart : S1 & S2 normal . . No murmur. S4 + Abd : Soft non tender with normal bowel sounds. Neuro : Moves all ext. with no localized deficit. Ext : No edema with intact pulses. Neg. calf tenderness Derm : No rashes or decubitus ulcer. Radiology/Labs . blood cultures negative Urine culture +ve ESBL E.COLI S MERREM/GENTAMICIN Asssessment : . S/P FALL. UROSEPSIS. OSTEONECROSIS RIGHT FEMORAL HEAD. VITAMIN d DEFICIENCY. Plan : CASE DISCUSSED WITH PMD.DR FRY PATIENT WILL NEED iv ANTIBIOTICS FOR TOTAL OF 7 DAYS. 10/17/17- 10/23/17 VITAMIN D 1 CAPSULE 50,000 UNITS Q 7DAYS X 3 MONTHS F/U RENAL FUNCTIONS. . CASE DISCUSSED W WINDING DEPARTMENT SUPERVISOR MS AMBROCIO Objective - Vital Signs/Intake and Output Vital Signs (last 24 hours): Temp Pulse Resp BP Pulse Ox 97.7 F 65 20 163/74 H 100 10/17/17 07:00 10/17/17 07:00 10/17/17 07:00 10/17/17 07:00 10/17/17 07:00 - Medications Medications: Current Medications Acetaminophen (Tylenol 325mg Tab) 650 mg PO Q8 PRN PRN Reason: Pain, moderate (4-7) Last Admin: 10/17/17 09:28 Dose: 650 mg Brimonidine Tartrate (Alphagan 0.2% Opht) 0 ml OU Q8H [facility] Last Admin: 10/17/17 09:26 Dose: 1 drop Ergocalciferol (Drisdol 50,000 Intl Units Cap) 1 cap PO Q7D [facility] Last Admin: 10/15/17 14:22 Dose: 1 cap Fluorometholone Acetate (Flarex) 0 ml OU TID PRN PRN Reason: Allergy symptoms Home Med (Patient's Own Drops) 1 drop OU Q24H [facility] Last Admin: 10/16/17 16:56 Dose: 1 drop Meropenem 500 mg/ Sodium (Chloride) 100 mls @ 100 mls/hr IVPB Q8H [facility] PRN Reason: Protocol Last Admin: 10/17/17 09:26 Dose: 100 mls/hr Gentamicin Sulfate 80 mg/ (Sodium Chloride) 102 mls @ 100 mls/hr IVPB Q24H [facility] PRN Reason: Protocol Stop: 10/17/17 19:01 Last Admin: 10/16/17 18:37 Dose: 100 mls/hr Lactulose (Enulose) 20 gm PO ONCE PRN PRN Reason: Constipation Last Admin: 10/12/17 18:00 Dose: 20 gm Lactulose (Enulose) 30 gm PO BID PRN PRN Reason: Constipation Last Admin: 10/13/17 15:43 Dose: 30 gm Latanoprost (Xalatan Opht) 0 ml OU HS [facility] Last Admin: 10/16/17 21:47 Dose: 2.5 ml Levothyroxine Sodium (Synthroid) 75 mcg PO DAILY@0630 [facility] Last Admin: 10/17/17 06:17 Dose: 75 mcg Losartan Potassium (Cozaar) 25 mg PO DAILY [facility] Last Admin: 10/17/17 09:26 Dose: 25 mg Meclizine HCl (Antivert) 25 mg PO Q8 PRN PRN Reason: Dizziness Pantoprazole Sodium (Protonix Ec Tab) 40 mg PO DAILY [facility] Last Admin: 10/17/17 09:26 Dose: 40 mg Timolol Maleate (Timoptic 0.5% Ophth Soln) 0 drop OU BID [facility] Last Admin: 10/17/17 09:26 Dose: 1 drop - Labs Labs: 10/17/17 07:55 10/17/17 07:55 PT 15.1 SECONDS (9.7-12.2) H 10/02/17 15:25 INR 1.4 10/02/17 15:25 APTT 33 SECONDS (21-34) 10/02/17 15:25 Assessment and Plan (1) UTI (urinary tract infection) Status: Acute (2) Fall Status: Acute (3) Inability to ambulate due to hip Status: Acute (4) Sinusitis Status: Acute (5) Osteonecrosis Status: Acute
--- NOTE | 2017-10-17 14:57 | CP.PCM.PN ---
Subjective - Date & Time of Evaluation Date of Evaluation: 10/17/17 Time of Evaluation: 14:56 - Subjective Subjective: PATIENT WAS ADMITTED FOR FALL/ INABILITY TO AMBULATE AAOX3/ LAY IN BED/ ON ROOM AIR/ NO SIGN OF DISTRESS NOTED Objective - Vital Signs/Intake and Output Vital Signs (last 24 hours): Temp Pulse Resp BP Pulse Ox 97.7 F 65 20 163/74 H 100 10/17/17 07:00 10/17/17 07:00 10/17/17 07:00 10/17/17 07:00 10/17/17 07:00 - Medications Medications: Current Medications Acetaminophen (Tylenol 325mg Tab) 650 mg PO Q8 PRN PRN Reason: Pain, moderate (4-7) Last Admin: 10/17/17 09:28 Dose: 650 mg Brimonidine Tartrate (Alphagan 0.2% Opht) 0 ml OU Q8H [facility] Last Admin: 10/17/17 09:26 Dose: 1 drop Ergocalciferol (Drisdol 50,000 Intl Units Cap) 1 cap PO Q7D [facility] Last Admin: 10/15/17 14:22 Dose: 1 cap Fluorometholone Acetate (Flarex) 0 ml OU TID PRN PRN Reason: Allergy symptoms Home Med (Patient's Own Drops) 1 drop OU Q24H [facility] Last Admin: 10/16/17 16:56 Dose: 1 drop Meropenem 500 mg/ Sodium (Chloride) 100 mls @ 100 mls/hr IVPB Q8H [facility] PRN Reason: Protocol Last Admin: 10/17/17 09:26 Dose: 100 mls/hr Gentamicin Sulfate 80 mg/ (Sodium Chloride) 102 mls @ 100 mls/hr IVPB Q24H [facility] PRN Reason: Protocol Stop: 10/17/17 19:01 Last Admin: 10/16/17 18:37 Dose: 100 mls/hr Lactulose (Enulose) 20 gm PO ONCE PRN PRN Reason: Constipation Last Admin: 10/12/17 18:00 Dose: 20 gm Lactulose (Enulose) 30 gm PO BID PRN PRN Reason: Constipation Last Admin: 10/13/17 15:43 Dose: 30 gm Latanoprost (Xalatan Opht) 0 ml OU HS [facility] Last Admin: 10/16/17 21:47 Dose: 2.5 ml Levothyroxine Sodium (Synthroid) 75 mcg PO DAILY@0630 [facility] Last Admin: 10/17/17 06:17 Dose: 75 mcg Losartan Potassium (Cozaar) 25 mg PO DAILY [facility] Last Admin: 10/17/17 09:26 Dose: 25 mg Meclizine HCl (Antivert) 25 mg PO Q8 PRN PRN Reason: Dizziness Pantoprazole Sodium (Protonix Ec Tab) 40 mg PO DAILY [facility] Last Admin: 10/17/17 09:26 Dose: 40 mg Timolol Maleate (Timoptic 0.5% Ophth Soln) 0 drop OU BID [facility] Last Admin: 10/17/17 09:26 Dose: 1 drop - Labs Labs: 10/17/17 07:55 10/17/17 07:55 PT 15.1 SECONDS (9.7-12.2) H 10/02/17 15:25 INR 1.4 10/02/17 15:25 APTT 33 SECONDS (21-34) 10/02/17 15:25 Assessment and Plan - Assessment and Plan (Free Text) Assessment: PATIENT SEEN AND EXAMINED LUNG SOUND CLEAR RAHEEM URINE POSITIVE FOR E COLI/ ESBL AND PATIENT WILL ABX FOR [address] GROSS (ID) AFEBRILE/ WBC WNL/ VITAL SIGN IS STABLE DISCUSS WITH DR FRY WHO CLEAR FOR DC PLACE UNDER THE SERVICE OF DR LEE AT [facility] ----CALL DR LEE FOR ADMITTING ORDER CONTINUE ALL YOUR HOME MEDICATION NEW PRESCRIPTION GIVEN MERREM 100 Q8H IVPB FOR 7 DAYS ACITIVITY TOLERATED AND FACILITY PROTOCOL PICC LINE CARE PER FACILITY PROTOCOL CALL DR LEE FOR FURTHER ORDER DISCUSS WITH PATIENT WHO AGREE AND VERBALIZED UNDERSTANDING
[2017-10-17] MEDS: AZELASTINE HCL 0.05% OU SCH (15:31)
[2017-10-17 15:50] VITALS: BP 150/70; PULSE 62; TEMP 98.3; O2SAT 98
--- NOTE | 2017-10-17 15:52 | CP.PCM.DIS ---
Provider - Provider Date of Admission: 10/02/17 17:27 Attending physician: Padmini Aceves MD Time Spent in preparation of Discharge (in minutes): 30 Hospital Course - Lab Results Lab Results: Micro Results 10/16/17 08:01 Urine,Catheterized Urine Culture - Final No Growth (<1,000 CFU/ML) 10/14/17 21:32 Blood-Venous Blood Culture - Preliminary NO GROWTH AFTER 48 HOURS 10/14/17 21:32 Blood-Venous Blood Culture - Preliminary NO GROWTH AFTER 48 HOURS 10/12/17 19:45 Urine,Catheterized Urine Culture - Final Escherichia Coli 10/10/17 12:20 Urine Urine Culture - Final Escherichia Coli 10/08/17 19:30 Urine Urine Culture - Final >100,000 CFU/ML. MULTIPLE SPECIES. SUGGEST REPEAT SPECIMEN. Most Recent Lab Values WBC 4.7 K/uL (4.8-10.8) L 10/17/17 07:55 RBC 3.93 Mil/uL (3.80-5.20) 10/17/17 07:55 Hgb 11.5 g/dL (11.0-16.0) 10/17/17 07:55 Hct 33.4 % (34.0-47.0) L 10/17/17 07:55 MCV 84.9 fL (81.0-99.0) 10/17/17 07:55 MCH 29.2 pg (27.0-31.0) 10/17/17 07:55 MCHC 34.4 g/dL (33.0-37.0) 10/17/17 07:55 RDW 14.3 % (11.5-14.5) 10/17/17 07:55 Plt Count 293 K/uL (130-400) 10/17/17 07:55 MPV 8.5 fL (7.2-11.7) 10/17/17 07:55 Neut % (Auto) 60.1 % (50.0-75.0) 10/17/17 07:55 Lymph % (Auto) 27.0 % (20.0-40.0) 10/17/17 07:55 [place] % (Auto) 8.4 % (0.0-10.0) 10/17/17 07:55 Eos % (Auto) 3.8 % (0.0-4.0) 10/17/17 07:55 Baso % (Auto) 0.7 % (0.0-2.0) 10/17/17 07:55 Neut # (Auto) 2.9 K/uL (1.8-7.0) 10/17/17 07:55 Lymph # (Auto) 1.3 K/uL (1.0-4.3) 10/17/17 07:55 [place] # (Auto) 0.4 K/uL (0.0-0.8) 10/17/17 07:55 Eos # (Auto) 0.2 K/uL (0.0-0.7) 10/17/17 07:55 Baso # (Auto) 0.0 K/uL (0.0-0.2) 10/17/17 07:55 PT 15.1 SECONDS (9.7-12.2) H 10/02/17 15:25 INR 1.4 10/02/17 15:25 APTT 33 SECONDS (21-34) 10/02/17 15:25 Sodium 132 mmol/L (132-148) 10/17/17 07:55 Potassium 4.3 mmol/L (3.6-5.2) 10/17/17 07:55 Chloride 99 mmol/L (98-107) 10/17/17 07:55 Carbon Dioxide 26 mmol/L (22-30) 10/17/17 07:55 Anion Gap 11 (10-20) 10/17/17 07:55 BUN 16 mg/dL (7-17) 10/17/17 07:55 Creatinine 0.9 mg/dL (0.7-1.2) 10/17/17 07:55 Est GFR ( Amer) > 60 10/17/17 07:55 Est GFR (Non-Af Amer) 59 10/17/17 07:55 Random Glucose 80 mg/dL (65-105) 10/17/17 07:55 Calcium 8.6 mg/dl (8.6-10.4) 10/17/17 07:55 Total Bilirubin 0.4 mg/dL (0.2-1.3) 10/17/17 07:55 AST 36 U/L (14-36) 10/17/17 07:55 ALT 40 U/L (9-52) 10/17/17 07:55 Alkaline Phosphatase 77 U/L (38-126) 10/17/17 07:55 Total Creatine Kinase 143 U/L (30-135) H 10/02/17 15:25 Troponin I 0.0690 ng/mL (0.00-0.120) 10/02/17 15:25 Total Protein 6.0 g/dL (6.3-8.3) L 10/17/17 07:55 Albumin 3.0 g/dL (3.5-5.0) L D 10/17/17 07:55 Globulin 3.0 gm/dL (2.2-3.9) 10/17/17 07:55 Albumin/Globulin Ratio 1.0 (1.0-2.1) 10/17/17 07:55 25-OH Vitamin D Total 17.6 NG/ML (30.0-100.0) L 10/15/17 07:14 Urine Color Straw (YELLOW) 10/16/17 08:01 Urine Clarity Hazy (Clear) 10/16/17 08:01 Urine pH 5.0 (5.0-8.0) 10/16/17 08:01 Ur Specific [place] 1.005 (1.003-1.030) 10/16/17 08:01 Urine Protein Negative mg/dL (NEGATIVE) 10/16/17 08:01 Urine Glucose (UA) Normal mg/dL (Normal) 10/16/17 08:01 Urine Ketones Negative mg/dL (NEGATIVE) 10/16/17 08:01 Urine Blood 1+ (NEGATIVE) H 10/16/17 08:01 Urine Nitrate Negative (NEGATIVE) 10/16/17 08:01 Urine Bilirubin Negative (NEGATIVE) 10/16/17 08:01 Urine Urobilinogen Normal mg/dL (0.2-1.0) 10/16/17 08:01 Ur Leukocyte Esterase 3+ [place]/uL (Negative) H 10/16/17 08:01 Urine WBC (Auto) 60 /hpf (0-5) H 10/16/17 08:01 Urine RBC (Auto) 13 /hpf (0-3) H 10/16/17 08:01 Ur Squamous Epith Cells < 1 /hpf (0-5) 10/16/17 08:01 Ur Transition Epith Cell < 1 /hpf (0-3) 10/02/17 15:49 Urine Bacteria Rare (<OCC) 10/16/17 08:01 - Hospital Course Hospital Course: Pt was admitted for frequent falls, living alone, not a safe discharger form ER. PT was evaluated for halfway placement. In the process she developed an uti. +ESBL pt remained stable, fluids were given due to low bp. BP now at base line requiring bp meds to be resumed. PT feels well, alert and looking fowar to [place]. Family and friends have been visiting pt. Discharge Exam - Head Exam Head Exam: NORMAL INSPECTION - ENT Exam ENT Exam: Mucous Membranes Moist - Respiratory Exam Respiratory Exam: Clear to PA & Lateral - Cardiovascular Exam Cardiovascular Exam: RRR. absent: JVD - GI/Abdominal Exam GI & Abdominal Exam: Normal Bowel Sounds Discharge Plan - Discharge Medications Prescriptions: Meropenem [Merrem IV] 500 mg IVPB Q8H 7 Days vial - Follow Up Plan Condition: STABLE Disposition: NURSING FACILITY MEDICAID CERT Patient education suggested?: Yes Instructions: Urinary Tract Infections in Adults, Peripherally-Inserted Central Catheter, High Blood Pressure (DC), Meropenem Additional Instructions: PLACE UNDER THE SERVICE OF DR LEE AT [facility] ----CALL DR LEE FOR ADMITTING ORDER CONTINUE ALL YOUR HOME MEDICATION NEW PRESCRIPTION GIVEN MERREM 100 Q8H IVPB FOR 7 DAYS ACITIVITY TOLERATED AND FACILITY PROTOCOL PICC LINE CARE PER FACILITY PROTOCOL CALL DR LEE FOR FURTHER ORDER LUGAR BAJO EL SERVICIO DEL DR. LEE EN [facility] ---- LLAME AL DR. DR. LEE PARA ADMITIR LA ORDEN CONTINE TODOS LOS MEDICAMENTOS DE [place] H[facility]AR NUEVA PRESCRIPCIN ESTELA MERREM 100 Q8H IVPB LAURA 7 SWAN ACITIVIDAD FAROOQ PROTOCOLO TOLERADO Y FACILIDAD CUIDADO DE LA LNEA PICC SEGN EL PROTOCOLO DE LA INSTALACIN LLAME AL DR. DR. LEE PARA PEDIDO ADICIONAL Referrals: Padmini Aceves MD [Staff Provider] - Vince Jones MD [Staff Provider] - Maribell Canela MD [Staff Provider] -
--- NOTE | 2017-10-17 16:05 | CP.PCM.HP ---
History of Present Illness - History of Present Illness History of Present Illness: CC: frequent falls HPI MRs. Mcmahon is a pleasant 87 year old female well k now to me. she was brought to ER after a fall. NO head injuries. Pt lives alone and has been falling frequently over the last few weeks. Pt is not able to get up when she falls. She will like NH placement PHM HTn hypothryroidism glaucoma DJD social no ethoh or smoking family p[arents +htn Present on Admission - Present on Admission Any Indicators Present on Admission: No Review of Systems - Constitutional Constitutional: absent: Anorexia, Chills - EENT Eyes: absent: Blurred Vision Ears: absent: Ear Discharge, Ear Pain Nose/Mouth/Throat: absent: Nasal Trauma - Cardiovascular Cardiovascular: absent: Chest Pain, Chest Pain with Activity, Pedal Edema, Syncope - Respiratory Respiratory: absent: Cough, Dyspnea, Hemoptysis - Gastrointestinal Gastrointestinal: absent: Change in Stool Character, Constipation, Diarrhea Past Patient History - Infectious Disease Hx of Infectious Diseases: None - Past Medical History & Family History Past Medical History?: Yes - Past Social History Smoking Status: Never Smoked - CARDIAC Hx Hypertension: Yes - HEENT Hx Glaucoma: Yes - ENDOCRINE/METABOLIC Hx Hypothyroidism: Yes - MUSCULOSKELETAL/RHEUMATOLOGICAL Hx Arthritis: Yes - GASTROINTESTINAL Hx Gastritis: Yes - GENITOURINARY/GYNECOLOGICAL Hx Incontinence: Yes - PSYCHIATRIC Hx Substance Use: No - SURGICAL HISTORY Hx Surgeries: No - ANESTHESIA Hx Anesthesia: No Hx Anesthesia Reactions: No Meds Home Medications: Home Medication List Medication Instructions Recorded Confirmed Type Acetaminophen [Tylenol 325mg tab] 650 mg PO Q8 PRN tab 10/17/17 Rx Ergocalciferol [Drisdol 50,000 1 cap PO Q7D 90 Days cap 10/17/17 Rx Intl Units Cap] Levothyroxine [Synthroid] 75 mcg PO DAILY@0630 tab 10/17/17 Rx Losartan [Cozaar] 50 mg PO DAILY tab 10/17/17 Rx Meropenem [Merrem IV] 500 mg IVPB Q8H 7 Days vial 10/17/17 Rx Timolol 0.5% Ophth [Timoptic 0.5% 0 drop OU BID 30 Days bottle 10/17/17 Rx Ophth Soln] Allergies/Adverse Reactions: Allergies Allergy/AdvReac Type Severity Reaction Status Date / Time SEASONAL Allergy Uncoded 10/02/17 14:28 Physical Exam - Constitutional Appears: Non-toxic - Eye Exam Eye Exam: Normal appearance - ENT Exam ENT Exam: Mucous Membranes Moist - Respiratory Exam Respiratory Exam: absent: Chest Wall Tenderness - Cardiovascular Exam Cardiovascular Exam: RRR, +S1, +S2. absent: JVD - GI/Abdominal Exam GI & Abdominal Exam: Normal Bowel Sounds, Soft. absent: Distended, Organomegaly - Extremities Exam Extremities exam: Negative for: joint swelling Results - Vital Signs Recent Vital Signs: Last Vital Signs Temp 98.3 F 10/17/17 15:00 Pulse 62 10/17/17 15:00 Resp 20 10/17/17 15:00 BP 150/70 10/17/17 15:00 Pulse Ox 98 10/17/17 15:00 - Labs Result Diagrams: 10/17/17 07:55 10/17/17 07:55 Labs: Laboratory Results - last 24 hr 10/17/17 10/17/17 07:55 07:55 WBC 4.7 L RBC 3.93 Hgb 11.5 Hct 33.4 L MCV 84.9 MCH 29.2 MCHC 34.4 RDW 14.3 Plt Count 293 MPV 8.5 Neut % (Auto) 60.1 Lymph % (Auto) 27.0 [place] % (Auto) 8.4 Eos % (Auto) 3.8 Baso % (Auto) 0.7 Neut # (Auto) 2.9 Lymph # (Auto) 1.3 [place] # (Auto) 0.4 Eos # (Auto) 0.2 Baso # (Auto) 0.0 Sodium 132 Potassium 4.3 Chloride 99 Carbon Dioxide 26 Anion Gap 11 BUN 16 Creatinine 0.9 Est GFR ( Amer) > 60 Est GFR (Non-Af Amer) 59 Random Glucose 80 Calcium 8.6 Total Bilirubin 0.4 AST 36 ALT 40 Alkaline Phosphatase 77 Total Protein 6.0 L Albumin 3.0 L D Globulin 3.0 Albumin/Globulin Ratio 1.0 Assessment & Plan - Assessment and Plan (Free Text) Assessment: 87 frequent fall unsave discharge admit hydrate; slightly dry bp cnt meds thryoid cont meds dvt and gi prophylaxis [facility] placment - Date & Time Date: 10/02/17 Time: 09:00
== END 2017-10-17 18:10 | DRG 554 ==
LOC: C.ER 14:18 → C.9E 17:27 → C.6T 18:38 → C.5S 10-13 10:35
PROVIDERS: ADMIT Internal Medicine; ATTEND Internal Medicine
PROC: 02H633Z Insertion of Infusion Device into Right Atrium, Percutaneous Approach (ICD-10-PCS; principal; 2017-10-17)
DX: M87.9 Osteonecrosis, unspecified (principal); N39.0 Urinary tract infection, site not specified; B96.20 Unspecified Escherichia coli [E. coli] as the cause of diseases classified elsewhere; K59.00 Constipation, unspecified; W19.XXXA Unspecified fall, initial encounter; R32 Unspecified urinary incontinence; E03.9 Hypothyroidism, unspecified; H40.9 Unspecified glaucoma; I10 Essential (primary) hypertension; J32.3 Chronic sphenoidal sinusitis; M81.0 Age-related osteoporosis without current pathological fracture; R29.6 Repeated falls